=== PATIENT | male | born 1940 | race African-American/Black ===

== ENCOUNTER 2017-03-24 14:59 | Inpatient (IN) | payer MEDICARE, MEDICAID ==
[~2017-03-24] VITALS: Ht 167.6 cm; Wt 73.3 kg
[2017-03-24] VITALS (7 sets, daily range): BP systolic 92–108; BP diastolic 66–76
[~2017-03-24 14:59] MED LIST: ATRIPLA1 TAB ORAL; CEFTIN500 MG ORAL; OXYCODONE HCL40 MG PO; PHENERGAN/CODE120 ML PO; SPIRIVA18 MCG INH; SYMBICORT2 PUFF1 *; seroquel
--- NOTE | 2017-03-24 15:04 | Emergency Room Report ---
History of Present Illness General Chief Complaint: Multiple Trauma/Fall Source: Patient Present Illness HPI Patient is a 77-year-old male who presented after having a fall at his physician 's office. Patient reportedly tripped and fell. He struck his head. Patient had recent alcohol use. Patient was noted to have a injury to his occipital scalp. History is limited by patient's mental status. Allergies: Coded Allergies: PENICILLIN G (Verified Allergy, Unknown, 03/24/17) PENICILLINS (Unverified Allergy, Unknown, 03/24/17) Patient History Past Medical History: CHF, HIV Reviewed Nursing Documentation: PMH: Agreed, PSxH: Agreed Nursing Documentation-PMH Hx Hypertension: Yes Hx Asthma: Yes Hx COPD: Yes Hx Cancer: No History Of Psychiatric Problem: Yes - depression Hx Neurological Problems: No Review of Systems All Other Systems: limited - by mental status Physical Exam Vital Signs Date Time Temp Pulse Resp B/P Pulse Ox O2 Delivery O2 Flow Rate FiO2 03/24/17 14:49 98.4 98 18 83/56 90 Room Air Sp02 EP Interpretation: reviewed, normal General Appearance: normal inspection, alert, thin, Chronically Ill Head: atraumatic ENT: normal ENT inspection, hearing grossly normal, normal voice Neck: normal inspection, full range of motion, supple, no bony tend Respiratory: normal inspection, lungs clear, normal breath sounds, no respiratory distress, no retraction, no wheezing Cardiovascular #1: regular rate, rhythm, no edema Gastrointestinal: normal inspection, normal bowel sounds, non tender, soft, no guarding, no hernia Genitourinary: no CVA tenderness Musculoskeletal: normal inspection, back normal, normal range of motion Neurologic: normal inspection, alert, responsive, [employer] III-XII nml as tested, speech normal Psychiatric: normal inspection, judgement/insight normal, mood/affect normal Skin: normal inspection, normal color, no rash Medical Decision Making Diagnostic Impression: Primary Impression: COPD (chronic obstructive pulmonary disease) Additional Impressions: Acute renal injury Rhabdomyolysis ER Course Patient presented for altered mental status.Differential diagnosis included but was not limited to ischemic stroke, subarachnoid hemorrhage, hypoglycemia, spinal cord injury, neurodegenerative disorder, urinary tract infection, hypoxemia. Because of complexity of patient's case laboratory testing and imaging studies were ordered. The patient noted be initially hypotensive and was started on IV fluids. Laboratory testing was notable for elevated lactic acid level 7.1.The patient was noted to have elevation of his creatinine compared to baseline Chest x- ray one view interpreted by me showed a patchy lung infiltrates without evident pneumothorax or effusion. Dr. Guthrie was contacted for inpatient management. Labs Test 03/24/17 15:11 03/24/17 16:00 03/24/17 16:20 White Blood Count 7.6 K/UL (4.8-10.8) Red Blood Count 4.40 M/UL (4.70-6.10) Hemoglobin 15.2 G/DL (14.2-18.0) Hematocrit 47.2 % (42.0-52.0) Mean Corpuscular Volume 107 FL (80-99) Mean Corpuscular Hemoglobin 34.5 PG (27.0-31.0) Mean Corpuscular Hemoglobin Concent 32.1 G/DL (32.0-36.0) Red Cell Distribution Width 13.8 % (11.6-14.8) Platelet Count 159 K/UL (150-450) Mean Platelet Volume 6.9 FL (6.5-10.1) Neutrophils (%) (Auto) 73.2 % (45.0-75.0) Lymphocytes (%) (Auto) 12.0 % (20.0-45.0) Monocytes (%) (Auto) 11.5 % (1.0-10.0) Eosinophils (%) (Auto) 0.3 % (0.0-3.0) Basophils (%) (Auto) 3.0 % (0.0-2.0) Sodium Level 139 mEQ/L (135-145) Potassium Level 3.3 mEQ/L (3.4-4.9) Chloride Level 92 mEQ/L (98-107) Carbon Dioxide Level 22 mEQ/L (20-30) Anion Gap 25 (5-15) Blood Urea Nitrogen 23 mg/dL (7-23) Creatinine 2.0 mg/dL (0.7-1.2) Estimat Glomerular Filtration Rate mL/min (>60) Glucose Level 96 mg/dL (74-106) Calcium Level 9.1 mg/dL (8.6-10.2) Total Bilirubin 1.8 mg/dL (0.0-1.2) Direct Bilirubin 0.9 mg/dL (0.1-0.3) Aspartate Amino Transf (AST/SGOT) 248 U/L (5-40) Alanine Aminotransferase (ALT/SGPT) 61 U/L (3-41) Alkaline Phosphatase 85 U/L (40-129) Total Creatine Kinase 7650 U/L (38-174) Creatine Kinase MB 28.2 ng/mL (< 6.7) Creatine Kinase MB Relative Index 0.3 Troponin I < 0.30 ng/mL (<=0.30) Pro-B-Type Natriuretic Peptide 70843 pg/mL (0-450) Total Protein 6.8 g/dL (6.6-8.7) Albumin 3.8 g/dL (3.5-5.2) Globulin 3.0 g/dL Albumin/Globulin Ratio 1.2 (1.0-2.7) Serum Alcohol 29 mg/dL Lactic Acid Level 4.70 mmol/L (0.66-2.22) Urine Color María Urine Appearance Slightly cloudy Urine pH 5 (4.5-8.0) Urine Specific [place] 1.020 (1.005-1.035) Urine Protein 2+ (NEGATIVE) Urine Glucose (UA) Negative (NEGATIVE) Urine Ketones 2+ (NEGATIVE) Urine Occult Blood 4+ (NEGATIVE) Urine Nitrite Negative (NEGATIVE) Urine Bilirubin 2+ (NEGATIVE) Urine Ictotest Positive Urine Urobilinogen 8 MG/DL (0.0-1.0) Urine Leukocyte Esterase 1+ (NEGATIVE) Urine RBC 0-2 /HPF (0 - 0) Urine WBC 0-2 /HPF (0 - 0) Urine Squamous Epithelial Cells Few /LPF (NONE/OCC) Urine Bacteria Moderate /HPF (NONE) Urine Hyaline Casts Tntc /LPF (NONE) EKG Diagnostic Results Rate: normal Rhythm: NSR ST Segments: other - t wave inversion anterior leads. Chest X-Ray Diagnostic Results EP Interpretation: Yes Findings: no consolidation, no effusion, no pneumothorax, no acute cardiopulmonary disease Number of Views: 1 Last Vital Signs Date Time Temp Pulse Resp B/P Pulse Ox O2 Delivery O2 Flow Rate FiO2 03/24/17 14:49 98.4 98 18 83/56 90 Room Air Status: unchanged Disposition: ADMITTED INPATIENT Condition: Critical Rachid Bautista March 24, 2017 15:04
[2017-03-24 15:35] LABS: EOSINOPHILS % (AUTO) 0.3 % (0.0-3.0); MEAN CORPUSCULAR HEMOGLOBIN 34.5 PG (27.0-31.0); MEAN CORPUSCULAR HGB CONC 32.1 G/DL (32.0-36.0); MEAN CORPUSCULAR VOLUME 107 FL (80-99); MEAN PLATELET VOLUME 6.9 FL (6.5-10.1); MONOCYTES % (AUTO) 11.5 % (1.0-10.0); NEUTROPHILS % (AUTO) 73.2 % (45.0-75.0); PLATELET COUNT 159 K/UL (150-450); RED CELL DISTRIBUTION WIDTH 13.8 % (11.6-14.8); WHITE BLOOD COUNT 7.6 K/UL (4.8-10.8)
[2017-03-24 15:40] LABS: ALANINE AMINOTRANSFERASE 61 U/L (3-41); ALBUMIN/GLOBULIN RATIO 1.2 (1.0-2.7); ANION GAP 25 (5-15); ASPARTATE AMINO TRANSFERASE 248 U/L (5-40); CALCIUM 9.1 mg/dL (8.6-10.2); CARBON DIOXIDE 22 mEQ/L (20-30); CHLORIDE 92 mEQ/L (98-107); HEMOLYSIS 15; POTASSIUM 3.3 mEQ/L (3.4-4.9); SODIUM 139 mEQ/L (135-145); TOTAL PROTEIN 6.8 g/dL (6.6-8.7); TROPONIN I < 0.30 ng/mL (<=0.30)
[2017-03-24 15:47] LABS: REFLEX LACTIC ACID YES OR NO YES
[2017-03-24 15:51] LABS: CKMB 28.2 ng/mL (< 6.7)
--- NOTE | 2017-03-24 15:59 | Diagnostic Imaging Report ---
Indication: Neck pain. Technique: Continuous helical imaging of the cervical spine was obtained transaxially from the skull base to the upper thoracic spine. 2-D coronal and sagittal reformatted images were obtained. Total Dose length Product (DLP): [address] Dose Index Volume (CTDIvol): 14 mGy Comparison: None Findings: There is no acute fracture identified. There is three-level interbody fusion at C3-C4 and C5. There are bridging osteophytes anteriorly at C2-3. Narrowed discs noted at C5-6 and C6-7 also with endplate osteophytes. Alignment is normal. Vascular calcifications noted within the extracranial portions of both carotid arteries as visualized. Multilevel central and neural foraminal stenosis demonstrated. Impression: No acute injury identified. Moderate spondylosis. Status post anterior interbody fusion C3-C5. Atherosclerotic vascular disease The CT scanner at [facility] is accredited by the [employer] and the scans are performed using dose optimization techniques as appropriate to a performed exam including Automatic Exposure control.
--- NOTE | 2017-03-24 16:00 | Diagnostic Imaging Report ---
Indication: Headache Technique: Contiguous 5 mm thick transaxial imaging of the head obtained in a Siemens Sensation [address] scanner. Soft tissue and bone windows generated. Total Dose length Product (DLP): [address] Dose Index Volume (CTDIvol): 70.38 mGy Comparison: none Findings: There is mild prominence of the ventricles, basal cisterns, and cerebral sulci consistent with atrophy. Mild, nonspecific, white matter hypoattenuation is noted throughout the brain consistent with chronic small vessel disease. There is no midline shift, edema, acute hemorrhage, mass effect, or abnormal extra-axial fluid collections. Bones and extra osseous soft tissues are unremarkable. Impression: No acute intracranial bleed, mass effect or edema. Mild atrophy of the brain. Nonspecific white matter hypoattenuation probably due to chronic small vessel disease. The CT scanner at [facility] is accredited by the [employer] and the scans are performed using dose optimization techniques as appropriate to a performed exam including Automatic Exposure control.
[2017-03-24 16:01] LABS: BILIRUBIN,DIRECT 0.9 mg/dL (0.1-0.3)
[2017-03-24 16:50] LABS: APPEARANCE,URINE SLIGHTLY CLOUDY; KETONES,URINE 2+ (NEGATIVE); LEUKOCYTE ESTERASE ,URINE 1+ (NEGATIVE); NITRITE,URINE NEGATIVE (NEGATIVE); PH,URINE 5 (4.5-8.0); PROTEIN,URINE 2+ (NEGATIVE); UROBILINOGEN,URINE 8 MG/DL (0.0-1.0)
[2017-03-24 16:52] LABS: ICTOTEST POSITIVE
[2017-03-24 16:57] LABS: HYALINE CASTS, URINE TNTC /LPF; RBC,URINE 0-2 /HPF (0 - 0); WBC,URINE 0-2 /HPF (0 - 0)
[2017-03-24 16:58] LABS: BACTERIA,URINE MODERATE /HPF; SQUAMOUS EPITHELIAL CELL,UR FEW /LPF (NONE/OCC)
[2017-03-24] MEDS ORDERED: SEROQUEL200 MG ORAL (18:00)
[2017-03-24] MEDS ORDERED: SEROSTIM6 M1 SQ (18:00)
[2017-03-24] MEDS ORDERED: MORPHINE IR15 MG ORAL (18:06)
[2017-03-24] MEDS ORDERED: FUROSEMIDE20 M1 ORAL (18:06)
[2017-03-24] MEDS ORDERED: DALIRESP500 MCG PO (18:06)
[2017-03-24] MEDS ORDERED: KADIAN60 MG PO (18:06)
[2017-03-24] MEDS ORDERED: TRAZODONE HCL50 MG ORAL (18:12)
[2017-03-24] MEDS ORDERED: PROMETHAZI6.25 MG/1 ORAL (18:12)
[2017-03-24] MEDS ORDERED: ECONAZOLE NITRA30 GM TP (18:12)
[2017-03-24] MEDS ORDERED: GENVOYA TABLET1 EACH PO (18:12)
[2017-03-24] MEDS ORDERED: LORazepam Inj 2mg/ml 1ml IV PRN (18:15)
[2017-03-24] MEDS ORDERED: DuoNeb 0.5-3(2.5)mg/3ml neb HHN PRN (18:15)
[2017-03-24] MEDS ORDERED: Miralax 17gm pkt ORAL PRN (18:15)
[2017-03-24] MEDS ORDERED: Mylanta II UD 30ml ORAL PRN (18:15)
[2017-03-24] MEDS ORDERED: Morphine Sulfate 2mg/ml Inj IVP PRN (18:15)
[2017-03-24] MEDS ORDERED: Nitroglycerin Subl 0.4mg tab (Bottle Of 25) SL PRN (18:15)
[2017-03-24] MEDS ORDERED: Promethazine/Codeine 5ml UD ORAL PRN (18:30)
[2017-03-24] MEDS: DuoNeb 0.5-3(2.5)mg/3ml neb HHN SCH (21:23)
[2017-03-24] MEDS: Heparin 5000 units/ml inj SUBQ SCH (21:25)
[2017-03-25] VITALS: BP 108/74
[2017-03-25] MEDS: DuoNeb 0.5-3(2.5)mg/3ml neb HHN SCH ×4 (01:06→19:20)
[2017-03-25 04:00] VITALS: BP 101/62
[2017-03-25 05:55] LABS: ALANINE AMINOTRANSFERASE 52 U/L (3-41); ALBUMIN/GLOBULIN RATIO 1.1 (1.0-2.7); ANION GAP 16 (5-15); ASPARTATE AMINO TRANSFERASE 183 U/L (5-40); CARBON DIOXIDE 27 mEQ/L (20-30); CHLORIDE 97 mEQ/L (98-107); CREATININE 1.2 mg/dL (0.7-1.2); HEMOLYSIS 4; MAGNESIUM 1.8 mg/dL (1.7-2.5); PHOSPHORUS 3.2 mg/dL (2.5-4.8); POTASSIUM 3.5 mEQ/L (3.4-4.9); SODIUM 140 mEQ/L (135-145); TOTAL PROTEIN 6.3 g/dL (6.6-8.7); URIC ACID 10.7 mg/dL (3.0-7.5)
[2017-03-25 05:59] LABS: THYROID STIMULATING HORMONE 0.549 uIU/mL (0.300-4.500)
[2017-03-25 06:29] LABS: BILIRUBIN,DIRECT 0.6 mg/dL (0.1-0.3)
[2017-03-25 08:00] VITALS: BP 110/75
[2017-03-25] MEDS: Heparin 5000 units/ml inj SUBQ SCH ×2 (08:35→21:03)
[2017-03-25] MEDS ORDERED: QUEtiapine 200mg tab ORAL SCH (09:00)
[2017-03-25 10:25] LABS: APPEARANCE,URINE CLEAR; KETONES,URINE 3+ (NEGATIVE); LEUKOCYTE ESTERASE ,URINE 1+ (NEGATIVE); NITRITE,URINE NEGATIVE (NEGATIVE); PH,URINE 5 (4.5-8.0); PROTEIN,URINE 1+ (NEGATIVE); UROBILINOGEN,URINE 8 MG/DL (0.0-1.0)
[2017-03-25 10:41] LABS: BACTERIA,URINE FEW /HPF; RBC,URINE 0-2 /HPF (0 - 0); SQUAMOUS EPITHELIAL CELL,UR OCCASIONAL /LPF (NONE/OCC); WBC,URINE 0-2 /HPF (0 - 0)
[2017-03-25 10:45] LABS: ICTOTEST POSITIVE
[2017-03-25 11:49] VITALS: BP 105/60
--- NOTE | 2017-03-25 13:12 | Consultation ---
History of Present Illness General Date patient seen: March 25, 2017 Chief Complaint: Multiple Trauma/Fall Present Illness HPI 77-year-old male with hx of HIV, who presented after having a fall at his physician's office. Patient reportedly tripped and fell. He struck his head. Patient had recent alcohol use. Patient was noted to have a injury to his occipital scalp. He had high blood etoh level. admitted to [facility] for syncopal episode. Allergies: Coded Allergies: PENICILLIN G (Verified Allergy, Unknown, 03/24/17) PENICILLINS (Unverified Allergy, Unknown, 03/24/17) Medication History Scheduled Budesonide/Formoterol Fumarate (Symbicort 160-4.5 Mcg Inhaler), 1 PUFFS * BID, ( Reported) Econazole Nitrate (Econazole Nitrate), 30 GM TP BID, (Reported) Elviteg/Kamille/Emtric/Tenofo Ala (Genvoya Tablet), 1 EACH PO DAILY, (Reported) Furosemide* (Lasix*), 20 MG ORAL DAILY, (Reported) Morphine HCl (Morphine Sulfate ER), 15 MG ORAL DAILY, (Reported) Morphine Sulfate (Hannah), 60 MG PO TID, (Reported) Promethazine Hcl (Promethazine Hcl*), 5 ML ORAL BEDTIME, (Reported) Quetiapine Fumarate* (Seroquel*), 200 MG ORAL DAILY, (Reported) Roflumilast (Daliresp), 500 MCG PO DAILY, (Reported) Somatropin (Serostim), 6 MG SQ BEDTIME, (Reported) Trazodone Hcl* (Desyrel*), 50 MG ORAL BEDTIME, (Reported) Discontinued Medications Cefuroxime Axetil* (Ceftin*), 500 MG ORAL BID, (Reported) Discontinued Reason: Therapy completed Efavirenz/Emtricitab/Tenofovir (Atripla Tablet), 1 TAB ORAL HS, (Reported) Discontinued Reason: Pt stopped taking med Tiotropium [place]* (Spiriva*), 1 PUFF INH DAILY, (Reported) Discontinued Reason: Pt stopped taking med [seroquel], (Reported) Discontinued Reason: Prescription changed Patient History Healthcare decision maker Resuscitation status Full Code Advanced Directive on File No Past Medical/Surgical History Past Medical/Surgical History: (1) HIV disease (2) COPD (chronic obstructive pulmonary disease) (3) Hypokalemia Review of Systems All Other Systems: negative except mentioned in HPI Physical Exam General Appearance: cachetic Lines, tubes and drains: peripheral HEENT: normocephalic, anicteric Neck: non-tender, normal alignment Respiratory/Chest: chest wall non-tender, lungs clear Cardiovascular/Chest: normal peripheral pulses, normal rate Abdomen: normal bowel sounds, non tender Genitourinary/Rectal: normal genital exam Extremities: normal range of motion Last 24 Hour Vital Signs Date Time Temp Pulse Resp B/P Pulse Ox O2 Delivery O2 Flow Rate FiO2 03/25/17 11:49 97.5 95 21 105/60 92 Nasal Cannula 2.0 03/25/17 08:00 97.9 90 20 110/75 92 Nasal Cannula 4.0 03/25/17 08:00 84 03/25/17 07:23 89 16 98 Nasal Cannula 2.0 28 03/25/17 07:17 Nasal Cannula 2.0 03/25/17 07:17 84 16 98 Nasal Cannula 2.0 28 03/25/17 07:17 98 Nasal Cannula 2.0 03/25/17 04:00 82 03/25/17 04:00 97.2 88 20 101/62 98 Nasal Cannula 4.0 03/25/17 01:16 92 18 98 Nasal Cannula 2.0 28 03/25/17 01:06 93 20 98 Nasal Cannula 2.0 28 03/25/17 00:00 97.0 94 20 108/74 98 Nasal Cannula 4.0 03/25/17 00:00 87 03/24/17 21:28 Nasal Cannula 03/24/17 21:28 Nasal Cannula 03/24/17 21:27 97 Nasal Cannula 4.0 03/24/17 21:27 Nasal Cannula 4.0 03/24/17 20:30 86 03/24/17 20:30 97.9 99 20 106/72 97 Nasal Cannula 4.0 03/24/17 20:20 90 23 102/71 97 Nasal Cannula 4.0 03/24/17 19:20 97.2 90 23 102/71 97 Nasal Cannula 4.0 03/24/17 18:36 98.5 90 20 107/72 94 Nasal Cannula 4.0 03/24/17 17:30 98.2 86 17 102/76 95 Simple Mask 6.0 03/24/17 16:38 98.7 99 19 108/76 95 Simple Mask 6.0 03/24/17 16:38 99 19 Simple Mask 6.0 03/24/17 15:30 87 16 103/73 93 Simple Mask 6.0 03/24/17 15:00 93 12 Nasal Cannula 4.0 03/24/17 15:00 98.2 93 12 92/66 87 Nasal Cannula 4.0 03/24/17 14:49 98.4 98 18 83/56 90 Room Air Intake and Output 03/24/17 03/25/17 19:00 07:00 Intake Total 1000 ml 240 ml Output Total 250 ml Balance 1000 ml -10 ml Intake Oral 240 ml IV Total 1000 ml Output Urine Total 250 ml # Voids 1 # Bowel Movements 4 Laboratory Tests Test 03/24/17 15:11 03/24/17 16:00 03/24/17 16:20 03/25/17 03:40 White Blood Count 7.6 K/UL (4.8-10.8) Red Blood Count 4.40 M/UL (4.70-6.10) L Hemoglobin 15.2 G/DL (14.2-18.0) Hematocrit 47.2 % (42.0-52.0) Mean Corpuscular Volume 107 FL (80-99) H Mean Corpuscular Hemoglobin 34.5 PG (27.0-31.0) H Mean Corpuscular Hemoglobin Concent 32.1 G/DL (32.0-36.0) Red Cell Distribution Width 13.8 % (11.6-14.8) Platelet Count 159 K/UL (150-450) Mean Platelet Volume 6.9 FL (6.5-10.1) Neutrophils (%) (Auto) 73.2 % (45.0-75.0) Lymphocytes (%) (Auto) 12.0 % (20.0-45.0) L Monocytes (%) (Auto) 11.5 % (1.0-10.0) H Eosinophils (%) (Auto) 0.3 % (0.0-3.0) Basophils (%) (Auto) 3.0 % (0.0-2.0) H Sodium Level 139 mEQ/L (135-145) 140 mEQ/L (135-145) Potassium Level 3.3 mEQ/L (3.4-4.9) L 3.5 mEQ/L (3.4-4.9) Chloride Level 92 mEQ/L (98-107) L 97 mEQ/L (98-107) L Carbon Dioxide Level 22 mEQ/L (20-30) 27 mEQ/L (20-30) Anion Gap 25 (5-15) H 16 (5-15) H Blood Urea Nitrogen 23 mg/dL (7-23) 21 mg/dL (7-23) Creatinine 2.0 mg/dL (0.7-1.2) H 1.2 mg/dL (0.7-1.2) Estimat Glomerular Filtration Rate mL/min (>60) mL/min (>60) Glucose Level 96 mg/dL (74-106) 93 mg/dL (74-106) Lactic Acid Level 7.40 mmol/L (0.66-2.22) H 4.70 mmol/L (0.66-2.22) H Calcium Level 9.1 mg/dL (8.6-10.2) 9.0 mg/dL (8.6-10.2) Total Bilirubin 1.8 mg/dL (0.0-1.2) H 1.5 mg/dL (0.0-1.2) H Direct Bilirubin 0.9 mg/dL (0.1-0.3) H 0.6 mg/dL (0.1-0.3) H Aspartate Amino Transf (AST/SGOT) 248 U/L (5-40) H 183 U/L (5-40) H Alanine Aminotransferase (ALT/SGPT) 61 U/L (3-41) H 52 U/L (3-41) H Alkaline Phosphatase 85 U/L (40-129) 74 U/L (40-129) Total Creatine Kinase 7650 U/L (38-174) H 5566 U/L (38-174) H Creatine Kinase MB 28.2 ng/mL (< 6.7) H Creatine Kinase MB Relative Index 0.3 Troponin I < 0.30 ng/mL (<=0.30) Pro-B-Type Natriuretic Peptide 21776 pg/mL (0-450) H Total Protein 6.8 g/dL (6.6-8.7) 6.3 g/dL (6.6-8.7) L Albumin 3.8 g/dL (3.5-5.2) 3.4 g/dL (3.5-5.2) L Globulin 3.0 g/dL 2.9 g/dL Albumin/Globulin Ratio 1.2 (1.0-2.7) 1.1 (1.0-2.7) Serum Alcohol 29 mg/dL Urine Color María Urine Appearance Slightly cloudy Urine pH 5 (4.5-8.0) Urine Specific [place] 1.020 (1.005-1.035) Urine Protein 2+ (NEGATIVE) H Urine Glucose (UA) Negative (NEGATIVE) Urine Ketones 2+ (NEGATIVE) H Urine Occult Blood 4+ (NEGATIVE) H Urine Nitrite Negative (NEGATIVE) Urine Bilirubin 2+ (NEGATIVE) H Urine Ictotest Positive Urine Urobilinogen 8 MG/DL (0.0-1.0) H Urine Leukocyte Esterase 1+ (NEGATIVE) H Urine RBC 0-2 /HPF (0 - 0) H Urine WBC 0-2 /HPF (0 - 0) Urine Squamous Epithelial Cells Few /LPF (NONE/OCC) Urine Bacteria Moderate /HPF (NONE) H Urine Hyaline Casts Tntc /LPF (NONE) H Plasma/Serum Osmolality Pending Uric Acid 10.7 mg/dL (3.0-7.5) H Phosphorus Level 3.2 mg/dL (2.5-4.8) Magnesium Level 1.8 mg/dL (1.7-2.5) Thyroid Stimulating Hormone (TSH) 0.549 uIU/mL (0.300-4.500) Free Thyroxine 1.23 ng/dL (0.86-1.85) Free Triiodothyronine Pending Cortisol Pending Test 03/25/17 05:00 Urine Color Brown Urine Appearance Clear Urine pH 5 (4.5-8.0) Urine Specific [place] 1.020 (1.005-1.035) Urine Protein 1+ (NEGATIVE) H Urine Glucose (UA) Negative (NEGATIVE) Urine Ketones 3+ (NEGATIVE) H Urine Occult Blood 1+ (NEGATIVE) H Urine Nitrite Negative (NEGATIVE) Urine Bilirubin 1+ (NEGATIVE) H Urine Ictotest Positive Urine Urobilinogen 8 MG/DL (0.0-1.0) H Urine Leukocyte Esterase 1+ (NEGATIVE) H Urine RBC 0-2 /HPF (0 - 0) H Urine WBC 0-2 /HPF (0 - 0) Urine Squamous Epithelial Cells Occasional /LPF Urine Bacteria Few /HPF (NONE) Urine Eosinophils None seen Urine Osmolality Pending Urine Random Sodium 28 mmol/L Urine Random Chloride 32 mmol/L Urine Potassium Timed 29 mmol/L Microbiology Date/Time Source Procedure Growth Status 03/24/17 16:20 Urine,Clean Catch Urine Culture - Preliminary Resulted Height (Feet): 5 Height (Inches): 6.00 Weight (Pounds): 142 Medications Current Medications Medications (Trade) Dose Ordered Sig/Raoul Route PRN Reason Start Time Stop Time Status Last Admin Dose Admin Acetaminophen (Tylenol) 650 mg Q4H PRN ORAL fever 03/24/17 18:15 04/23/17 18:14 Al Hydroxide/Mg Hydroxide (Mylanta II) 30 ml Q6H PRN ORAL dyspepsia 03/24/17 18:15 04/23/17 18:14 Albuterol/ Ipratropium (DuoNeb 0.5-3(2.5)mg/3ml) 3 ml Q4H PRN HHN Shortness of Breath 03/24/17 18:15 03/29/17 18:14 Albuterol/ Ipratropium (DuoNeb 0.5-3(2.5)mg/3ml) 3 ml Q6HRT HHN 03/24/17 19:00 03/29/17 18:59 03/25/17 07:17 Chlordiazepoxide (Librium) 25 mg Q6H PRN ORAL Agitation 03/25/17 13:00 04/01/17 12:59 UNV Clonidine HCl (Catapres) 0.1 mg Q4H PRN ORAL SBP > 160 03/24/17 18:15 04/23/17 18:14 Dextrose (Dextrose 50%) STAT PRN IV Hypoglycemia 03/24/17 18:15 04/23/17 18:14 Heparin Sodium (Porcine) (Heparin 5000 units/ml) 5,000 units EVERY 12 HOURS SUBQ 03/24/17 21:00 04/23/17 20:59 03/25/17 08:35 Lorazepam (Ativan 2mg/ml 1ml) 0.5 mg Q4H PRN IV For Anxiety 03/24/17 18:15 03/31/17 18:14 Morphine Sulfate (Morphine Sulfate) 1 mg Q4H PRN IVP For Pain 7-10 03/24/17 18:15 03/31/17 18:14 03/25/17 08:51 Nitroglycerin (Ntg) 0.4 mg Q5M X 3 DOSES PRN SL Prn Chest Pain 03/24/17 18:15 04/23/17 18:14 Ondansetron HCl (Zofran) 4 mg Q6H PRN IVP Nausea & Vomiting 03/24/17 18:15 04/23/17 18:14 Polyethylene Glycol (Miralax) 17 gm HSPRN PRN ORAL Constipation 03/24/17 18:15 04/23/17 18:14 Promethazine HCl/ Codeine 5 ml 5 ml Q4H PRN ORAL For Cough 03/24/17 18:30 04/23/17 18:29 Quetiapine Fumarate (SEROquel) 200 mg DAILY ORAL 03/25/17 09:00 04/24/17 08:59 03/25/17 08:34 Temazepam (Restoril) 15 mg HSPRN PRN ORAL Insomnia 03/24/17 18:15 03/31/17 18:14 03/24/17 23:25 Thiamine HCl/ Folic Acid/ Magnesium Sulfate/ Multivitamins/ Sodium Chloride (Vitamin B1/ Folvite/Magnesium Sulfate/M.v.i.-12/ NS w/KCl 20mEq) 1,015.2 ml @ 125 mls/ hr Q24H IV 03/25/17 13:00 04/24/17 12:59 UNV Assessment/Plan Problem List: (1) Acute encephalopathy ICD Codes: G93.40 - Encephalopathy, unspecified SNOMED: 3232372 (2) ATN (acute tubular necrosis) ICD Codes: N17.0 - Acute kidney failure with tubular necrosis SNOMED: 98245711 (3) COPD (chronic obstructive pulmonary disease) ICD Codes: J44.9 - COPD (chronic obstructive pulmonary disease) SNOMED: 56810175 (4) Acute renal injury ICD Codes: N17.9 - Acute kidney failure, unspecified SNOMED: 30028843 (5) Hypokalemia ICD Codes: E87.6 - Hypokalemia SNOMED: 59938836 (6) HIV disease ICD Codes: B20 - Human immunodeficiency virus [HIV] disease SNOMED: 99745096 Assessment/Plan respiratory treatment sputum induction librium banan bag echo doppler of carotid artery. renal evaluation renew morphine YAJAIRA PRADO March 25, 2017 13:12
[2017-03-25] MEDS ORDERED: Promethazine/Codeine 5ml UD ORAL PRN ×2 (13:15→21:15)
[2017-03-25] MEDS ORDERED: chlordiazePOXIDE 25mg Cap ORAL PRN ×2 (13:30→19:30)
--- NOTE | 2017-03-25 13:53 | Cardiology Report ---
APPROVED REPORT EXAM: Two-dimensional and M-mode echocardiogram with Doppler and color Doppler. INDICATION LV function M-Mode DIMENSIONS IVSd0.9 (0.7-1.1cm)Left Atrium (MM)3.1 (1.6-4.0cm) LVDd5.1 (3.5-5.6cm)Aortic Root3.9 (2.0-3.7cm) PWd0.8 (0.7-1.1cm)Aortic Cusp Exc.2.2 (1.5-2.0cm) LVDs2.8 (2.5-4.0cm) PWs1.6 cm M-mode measurements of left ventricle not obtainable due to cardiac position (angle) Normal left ventricular chamber size, systolic function and wall motion. Left ventricular ejection fraction estimated to be 60-65 %. No evidence of left ventricular hypertrophy. No evidence of pericardial effusion. Left and right atrial sizes at upper limits of normal. Right ventricular chamber size is within normal limits. Mild focal aortic valve sclerosis with adequate cusp excursion. Mildly thickened mitral valve leaflets with normal excursion. Mitral annulus and aortic root calcification. Pulmonic valve not well visualized. Normal tricuspid valve structure. IVC at normal size with physiologic collapse. A color flow and spectral Doppler study was performed and revealed: Mild aortic regurgitation. Trace mitral regurgitation. Mitral diastolic velocities suggest reduced left ventricular relaxation c/w mild LV diastolic dysfunction (Grade I). Mild tricuspid regurgitation. Tricuspid systolic velocities suggests peak right ventricular systolic pressure of 38 mmHg, consistent with mild pulmonary hypertension. Mild pulmonic regurgitation present.
[2017-03-25] MEDS ORDERED: Folic Acid 1 MG, Magnesium Sulfate 2,000 MG, Multivitamin - 12 Injection 10 ML in NS w/... IV SCH (15:00)
[2017-03-25] MEDS ORDERED: Thiamine 100 MG ivpb IVPB SCH ×2 (15:00)
--- NOTE | 2017-03-25 15:05 | Infectious Diseases Prog Note ---
Assessment/Plan Assessment/Plan Full consult Dictated: A) 1) possible uti 2) uri/bronchitis, ? 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 Guthrie 7) thank you Subjective Allergies: Coded Allergies: PENICILLIN G (Verified Allergy, Unknown, 03/24/17) PENICILLINS (Unverified Allergy, Unknown, 03/24/17) Objective Vital Signs Last 24 Hour Vital Signs Date Time Temp Pulse Resp B/P Pulse Ox O2 Delivery O2 Flow Rate FiO2 03/25/17 13:20 87 18 98 Nasal Cannula 2.0 28 03/25/17 13:20 Nasal Cannula 2.0 28 03/25/17 12:00 108 03/25/17 11:49 97.5 95 21 105/60 92 Nasal Cannula 2.0 03/25/17 08:00 97.9 90 20 110/75 92 Nasal Cannula 4.0 03/25/17 08:00 84 03/25/17 07:23 89 16 98 Nasal Cannula 2.0 28 03/25/17 07:17 Nasal Cannula 2.0 03/25/17 07:17 84 16 98 Nasal Cannula 2.0 28 03/25/17 07:17 98 Nasal Cannula 2.0 03/25/17 04:00 82 03/25/17 04:00 97.2 88 20 101/62 98 Nasal Cannula 4.0 03/25/17 01:16 92 18 98 Nasal Cannula 2.0 28 03/25/17 01:06 93 20 98 Nasal Cannula 2.0 28 03/25/17 00:00 97.0 94 20 108/74 98 Nasal Cannula 4.0 03/25/17 00:00 87 03/24/17 21:28 Nasal Cannula 03/24/17 21:28 Nasal Cannula 03/24/17 21:27 97 Nasal Cannula 4.0 03/24/17 21:27 Nasal Cannula 4.0 03/24/17 20:30 86 03/24/17 20:30 97.9 99 20 106/72 97 Nasal Cannula 4.0 03/24/17 20:20 90 23 102/71 97 Nasal Cannula 4.0 03/24/17 19:20 97.2 90 23 102/71 97 Nasal Cannula 4.0 03/24/17 18:36 98.5 90 20 107/72 94 Nasal Cannula 4.0 03/24/17 17:30 98.2 86 17 102/76 95 Simple Mask 6.0 03/24/17 16:38 98.7 99 19 108/76 95 Simple Mask 6.0 03/24/17 16:38 99 19 Simple Mask 6.0 03/24/17 15:30 87 16 103/73 93 Simple Mask 6.0 Height (Feet): 5 Height (Inches): 6.00 Weight (Pounds): 142 Microbiology Date/Time Source Procedure Growth Status 03/24/17 16:20 Urine,Clean Catch Urine Culture - Preliminary Resulted Laboratory Tests Test 03/24/17 15:11 03/24/17 16:00 03/24/17 16:20 03/25/17 03:40 White Blood Count 7.6 K/UL (4.8-10.8) Red Blood Count 4.40 M/UL (4.70-6.10) L Hemoglobin 15.2 G/DL (14.2-18.0) Hematocrit 47.2 % (42.0-52.0) Mean Corpuscular Volume 107 FL (80-99) H Mean Corpuscular Hemoglobin 34.5 PG (27.0-31.0) H Mean Corpuscular Hemoglobin Concent 32.1 G/DL (32.0-36.0) Red Cell Distribution Width 13.8 % (11.6-14.8) Platelet Count 159 K/UL (150-450) Mean Platelet Volume 6.9 FL (6.5-10.1) Neutrophils (%) (Auto) 73.2 % (45.0-75.0) Lymphocytes (%) (Auto) 12.0 % (20.0-45.0) L Monocytes (%) (Auto) 11.5 % (1.0-10.0) H Eosinophils (%) (Auto) 0.3 % (0.0-3.0) Basophils (%) (Auto) 3.0 % (0.0-2.0) H Sodium Level 139 mEQ/L (135-145) 140 mEQ/L (135-145) Potassium Level 3.3 mEQ/L (3.4-4.9) L 3.5 mEQ/L (3.4-4.9) Chloride Level 92 mEQ/L (98-107) L 97 mEQ/L (98-107) L Carbon Dioxide Level 22 mEQ/L (20-30) 27 mEQ/L (20-30) Anion Gap 25 (5-15) H 16 (5-15) H Blood Urea Nitrogen 23 mg/dL (7-23) 21 mg/dL (7-23) Creatinine 2.0 mg/dL (0.7-1.2) H 1.2 mg/dL (0.7-1.2) Estimat Glomerular Filtration Rate mL/min (>60) mL/min (>60) Glucose Level 96 mg/dL (74-106) 93 mg/dL (74-106) Lactic Acid Level 7.40 mmol/L (0.66-2.22) H 4.70 mmol/L (0.66-2.22) H Calcium Level 9.1 mg/dL (8.6-10.2) 9.0 mg/dL (8.6-10.2) Total Bilirubin 1.8 mg/dL (0.0-1.2) H 1.5 mg/dL (0.0-1.2) H Direct Bilirubin 0.9 mg/dL (0.1-0.3) H 0.6 mg/dL (0.1-0.3) H Aspartate Amino Transf (AST/SGOT) 248 U/L (5-40) H 183 U/L (5-40) H Alanine Aminotransferase (ALT/SGPT) 61 U/L (3-41) H 52 U/L (3-41) H Alkaline Phosphatase 85 U/L (40-129) 74 U/L (40-129) Total Creatine Kinase 7650 U/L (38-174) H 5566 U/L (38-174) H Creatine Kinase MB 28.2 ng/mL (< 6.7) H Creatine Kinase MB Relative Index 0.3 Troponin I < 0.30 ng/mL (<=0.30) Pro-B-Type Natriuretic Peptide 55286 pg/mL (0-450) H Total Protein 6.8 g/dL (6.6-8.7) 6.3 g/dL (6.6-8.7) L Albumin 3.8 g/dL (3.5-5.2) 3.4 g/dL (3.5-5.2) L Globulin 3.0 g/dL 2.9 g/dL Albumin/Globulin Ratio 1.2 (1.0-2.7) 1.1 (1.0-2.7) Serum Alcohol 29 mg/dL Urine Color María Urine Appearance Slightly cloudy Urine pH 5 (4.5-8.0) Urine Specific [place] 1.020 (1.005-1.035) Urine Protein 2+ (NEGATIVE) H Urine Glucose (UA) Negative (NEGATIVE) Urine Ketones 2+ (NEGATIVE) H Urine Occult Blood 4+ (NEGATIVE) H Urine Nitrite Negative (NEGATIVE) Urine Bilirubin 2+ (NEGATIVE) H Urine Ictotest Positive Urine Urobilinogen 8 MG/DL (0.0-1.0) H Urine Leukocyte Esterase 1+ (NEGATIVE) H Urine RBC 0-2 /HPF (0 - 0) H Urine WBC 0-2 /HPF (0 - 0) Urine Squamous Epithelial Cells Few /LPF (NONE/OCC) Urine Bacteria Moderate /HPF (NONE) H Urine Hyaline Casts Tntc /LPF (NONE) H Plasma/Serum Osmolality Pending Uric Acid 10.7 mg/dL (3.0-7.5) H Phosphorus Level 3.2 mg/dL (2.5-4.8) Magnesium Level 1.8 mg/dL (1.7-2.5) Thyroid Stimulating Hormone (TSH) 0.549 uIU/mL (0.300-4.500) Free Thyroxine 1.23 ng/dL (0.86-1.85) Free Triiodothyronine Pending Cortisol Pending Test 03/25/17 05:00 Urine Color Brown Urine Appearance Clear Urine pH 5 (4.5-8.0) Urine Specific [place] 1.020 (1.005-1.035) Urine Protein 1+ (NEGATIVE) H Urine Glucose (UA) Negative (NEGATIVE) Urine Ketones 3+ (NEGATIVE) H Urine Occult Blood 1+ (NEGATIVE) H Urine Nitrite Negative (NEGATIVE) Urine Bilirubin 1+ (NEGATIVE) H Urine Ictotest Positive Urine Urobilinogen 8 MG/DL (0.0-1.0) H Urine Leukocyte Esterase 1+ (NEGATIVE) H Urine RBC 0-2 /HPF (0 - 0) H Urine WBC 0-2 /HPF (0 - 0) Urine Squamous Epithelial Cells Occasional /LPF Urine Bacteria Few /HPF (NONE) Urine Eosinophils None seen Urine Osmolality Pending Urine Random Sodium 28 mmol/L Urine Random Chloride 32 mmol/L Urine Potassium Timed 29 mmol/L Current Medications Medications (Trade) Dose Ordered Sig/Raoul Route PRN Reason Start Time Stop Time Status Last Admin Dose Admin Acetaminophen (Tylenol) 650 mg Q4H PRN ORAL fever 03/24/17 18:15 04/23/17 18:14 Al Hydroxide/Mg Hydroxide (Mylanta II) 30 ml Q6H PRN ORAL dyspepsia 03/24/17 18:15 04/23/17 18:14 Albuterol/ Ipratropium (DuoNeb 0.5-3(2.5)mg/3ml) 3 ml Q4H PRN HHN Shortness of Breath 03/24/17 18:15 03/29/17 18:14 Albuterol/ Ipratropium 3 ml 3 ml Q6HRT HHN 03/24/17 19:00 03/29/17 18:59 03/25/17 07:17 Chlordiazepoxide (Librium) 25 mg Q6H PRN ORAL Agitation 03/25/17 13:30 04/01/17 13:29 Clonidine HCl (Catapres) 0.1 mg Q4H PRN ORAL SBP > 160 03/24/17 18:15 04/23/17 18:14 Dextrose (Dextrose 50%) STAT PRN IV Hypoglycemia 03/24/17 18:15 04/23/17 18:14 Folic Acid/ Magnesium Sulfate/ Multivitamins/ Sodium Chloride (Folvite/ Magnesium Sulfate/ M.v.i.-12/NS w/ KCl 20mEq) 1,014.2 ml @ 125 mls/ hr Q24H IV 03/25/17 15:00 04/24/17 14:59 Heparin Sodium (Porcine) (Heparin 5000 units/ml) 5,000 units EVERY 12 HOURS SUBQ 03/24/17 21:00 04/23/17 20:59 03/25/17 08:35 Lorazepam (Ativan 2mg/ml 1ml) 0.5 mg Q4H PRN IV For Anxiety 03/24/17 18:15 03/31/17 18:14 Morphine Sulfate (MS Contin) 15 mg DAILY ORAL 03/26/17 09:00 04/02/17 08:59 Morphine Sulfate (Morphine Sulfate) 1 mg Q4H PRN IVP For Pain 7-03/24/17 18:15 03/31/17 18:14 03/25/17 08:51 Nitroglycerin (Ntg) 0.4 mg Q5M X 3 DOSES PRN SL Prn Chest Pain 03/24/17 18:15 04/23/17 18:14 Ondansetron HCl (Zofran) 4 mg Q6H PRN IVP Nausea & Vomiting 03/24/17 18:15 04/23/17 18:14 Polyethylene Glycol (Miralax) 17 gm HSPRN PRN ORAL Constipation 03/24/17 18:15 04/23/17 18:14 Promethazine HCl/ Codeine (Phenergan with Codeine) 5 ml Q4H PRN ORAL For Cough 03/25/17 13:15 04/24/17 13:14 Quetiapine Fumarate (SEROquel) 200 mg DAILY ORAL 03/25/17 09:00 04/24/17 08:59 03/25/17 08:34 Temazepam (Restoril) 15 mg HSPRN PRN ORAL Insomnia 03/24/17 18:15 03/31/17 18:14 03/24/17 23:25 Thiamine HCl/ Dextrose (Vitamin B1/D5W) 56 ml @ 112 mls/hr Q24H IVPB 03/25/17 15:00 04/24/17 14:59 Trazodone HCl 50 mg 50 mg BEDTIME ORAL 03/25/17 21:00 04/24/17 20:59 CARISSA HAYWOOD March 25, 2017 15:05
[2017-03-25 16:28] VITALS: BP 114/76
[2017-03-25] MEDS ORDERED: metroNIDAZOLE 500mg 100 ML IVPB SCH (16:30)
--- NOTE | 2017-03-25 16:54 | Cardiology Progress Note ---
Assessment/Plan Assessment/Plan The patient is seen and examined, full consult note is dictated. Objective Last 24 Hour Vital Signs Date Time Temp Pulse Resp B/P Pulse Ox O2 Delivery O2 Flow Rate FiO2 03/25/17 16:28 97.9 85 20 114/76 93 Nasal Cannula 2.0 03/25/17 13:20 87 18 98 Nasal Cannula 2.0 28 03/25/17 13:20 Nasal Cannula 2.0 28 03/25/17 12:00 108 03/25/17 11:49 97.5 95 21 105/60 92 Nasal Cannula 2.0 03/25/17 08:00 97.9 90 20 110/75 92 Nasal Cannula 4.0 03/25/17 08:00 84 03/25/17 07:23 89 16 98 Nasal Cannula 2.0 28 03/25/17 07:17 Nasal Cannula 2.0 03/25/17 07:17 84 16 98 Nasal Cannula 2.0 28 03/25/17 07:17 98 Nasal Cannula 2.0 03/25/17 04:00 82 03/25/17 04:00 97.2 88 20 101/62 98 Nasal Cannula 4.0 03/25/17 01:16 92 18 98 Nasal Cannula 2.0 28 03/25/17 01:06 93 20 98 Nasal Cannula 2.0 28 03/25/17 00:00 97.0 94 20 108/74 98 Nasal Cannula 4.0 03/25/17 00:00 87 03/24/17 21:28 Nasal Cannula 03/24/17 21:28 Nasal Cannula 03/24/17 21:27 97 Nasal Cannula 4.0 03/24/17 21:27 Nasal Cannula 4.0 03/24/17 20:30 86 03/24/17 20:30 97.9 99 20 106/72 97 Nasal Cannula 4.0 03/24/17 20:20 90 23 102/71 97 Nasal Cannula 4.0 03/24/17 19:20 97.2 90 23 102/71 97 Nasal Cannula 4.0 03/24/17 18:36 98.5 90 20 107/72 94 Nasal Cannula 4.0 03/24/17 17:30 98.2 86 17 102/76 95 Simple Mask 6.0 Intake and Output 03/24/17 03/25/17 19:00 07:00 Intake Total 1000 ml 240 ml Output Total 250 ml Balance 1000 ml -10 ml Intake Oral 240 ml IV Total 1000 ml Output Urine Total 250 ml # Voids 1 # Bowel Movements 4 Laboratory Tests Test 03/25/17 03:40 03/25/17 05:00 Sodium Level 140 mEQ/L (135-145) Potassium Level 3.5 mEQ/L (3.4-4.9) Chloride Level 97 mEQ/L (98-107) L Carbon Dioxide Level 27 mEQ/L (20-30) Anion Gap 16 (5-15) H Blood Urea Nitrogen 21 mg/dL (7-23) Creatinine 1.2 mg/dL (0.7-1.2) Estimat Glomerular Filtration Rate mL/min (>60) Glucose Level 93 mg/dL (74-106) Plasma/Serum Osmolality Pending Uric Acid 10.7 mg/dL (3.0-7.5) H Calcium Level 9.0 mg/dL (8.6-10.2) Phosphorus Level 3.2 mg/dL (2.5-4.8) Magnesium Level 1.8 mg/dL (1.7-2.5) Total Bilirubin 1.5 mg/dL (0.0-1.2) H Direct Bilirubin 0.6 mg/dL (0.1-0.3) H Aspartate Amino Transf (AST/SGOT) 183 U/L (5-40) H Alanine Aminotransferase (ALT/SGPT) 52 U/L (3-41) H Alkaline Phosphatase 74 U/L (40-129) Total Creatine Kinase 5566 U/L (38-174) H Total Protein 6.3 g/dL (6.6-8.7) L Albumin 3.4 g/dL (3.5-5.2) L Globulin 2.9 g/dL Albumin/Globulin Ratio 1.1 (1.0-2.7) Thyroid Stimulating Hormone (TSH) 0.549 uIU/mL (0.300-4.500) Free Thyroxine 1.23 ng/dL (0.86-1.85) Free Triiodothyronine Pending Cortisol Pending Urine Color Brown Urine Appearance Clear Urine pH 5 (4.5-8.0) Urine Specific [place] 1.020 (1.005-1.035) Urine Protein 1+ (NEGATIVE) H Urine Glucose (UA) Negative (NEGATIVE) Urine Ketones 3+ (NEGATIVE) H Urine Occult Blood 1+ (NEGATIVE) H Urine Nitrite Negative (NEGATIVE) Urine Bilirubin 1+ (NEGATIVE) H Urine Ictotest Positive Urine Urobilinogen 8 MG/DL (0.0-1.0) H Urine Leukocyte Esterase 1+ (NEGATIVE) H Urine RBC 0-2 /HPF (0 - 0) H Urine WBC 0-2 /HPF (0 - 0) Urine Squamous Epithelial Cells Occasional /LPF Urine Bacteria Few /HPF (NONE) Urine Eosinophils None seen Urine Osmolality Pending Urine Random Sodium 28 mmol/L Urine Random Chloride 32 mmol/L Urine Potassium Timed 29 mmol/L Microbiology Date/Time Source Procedure Growth Status 03/24/17 16:20 Urine,Clean Catch Urine Culture - Preliminary Resulted FREDERIC CORDERO March 25, 2017 16:54
[2017-03-25] MEDS ORDERED: cefTRIAXone 1 GM in D5W 50 ML IVPB SCH (17:00)
[2017-03-25] MEDS ORDERED: NS 275ml ONE (17:23)
[2017-03-25] MEDS ORDERED: Nitroglycerin Subl 0.4mg tab (Bottle Of 25) SL PRN (18:00)
[2017-03-25] MEDS ORDERED: Mylanta II UD 30ml ORAL PRN (18:15)
[2017-03-25] MEDS ORDERED: Morphine Sulfate 2mg/ml Inj IVP PRN (18:15)
[2017-03-25] MEDS ORDERED: Miralax 17gm pkt ORAL PRN (18:15)
[2017-03-25] MEDS ORDERED: LORazepam Inj 2mg/ml 1ml IV PRN (18:15)
[2017-03-25] MEDS ORDERED: DuoNeb 0.5-3(2.5)mg/3ml neb HHN PRN (18:15)
[2017-03-25 20:00] VITALS: BP 115/87
[2017-03-25] MEDS: TraZODone 50mg tab ORAL SCH (20:59)
--- NOTE | 2017-03-25 20:59 | History and Physical Report ---
DATE OF ADMISSION: 03/24/2017 PRIMARY DOCTOR: Bjorn Jones M.D. REASON FOR ADMISSION: Altered mental status. HISTORY OF PRESENT ILLNESS: The patient is a very pleasant male with past medical history significant for history of chronic obstructive pulmonary disease, history of congestive heart failure, history of depression, history of degenerative joint disease, history of avascular necrosis of the right hip and chronic pain syndrome who was actually was visiting his primary physician, Dr. Bjorn Jones when he fell outside of the office and hit back of his head. Paramedics called. The patient was brought into the emergency room. In the emergency room, the patient had an CT of the head, which was negative; however, the patient found to have an persistent low O2 saturation and also found to have an elevation of the CPK. His creatinine also found to be elevated more than his baseline. The patient was consequently resuscitated with intravenous fluids. I was called for admission. PAST MEDICAL HISTORY: 1. History of lipodystrophy. 2. History of acute renal failure. 3. History of chronic kidney disease. 4. History of positive PPD. 5. History of depression. 6. Chronic pain syndrome. 7. History of vitamin D deficiency. 8. History of chronic obstructive pulmonary disease. ALLERGIES: Allergies to penicillin. MEDICATIONS: Medications at home are includin. Symbicort one puff twice a day. 2. Genvoya one tablet by mouth daily. 3. Lasix 20 mg p.o. daily. 4. Motrin 60 mg p.o. daily. 5. Promethazine as needed cough. 6. Seroquel 200 mg by mouth daily. 7. Daliresp 500 mg p.o. daily. 8. Serostim 6 mg bedtime. 9. Desyrel 50 mg p.o. daily. SOCIAL HISTORY: Quit smoking 3 months ago. Denies any history of alcohol or drug use. FAMILY HISTORY: Noncontributory. REVIEW OF SYSTEMS: General: He complained of generalized weakness. Denied any fever, chills, or night sweats. Head And Neck: Denies any dysphagia, odynophagia, blurry vision, headache, or neck stiffness. Pulmonary: Complained of shortness of breath, cough, yellow sputum. Cardiovascular: Mild chest pain. Has some orthopnea. No PND. No leg swelling. Gastrointestinal: No nausea, vomiting, diarrhea, hematemesis, or hematochezia. Genitourinary: Denies any dysuria, frequency, or hematuria. Musculoskeletal: He denies any weakness or numbness. Complained of headache which was resolved. LABORATORY VALUES: The patient had WBC count of 7.6, hemoglobin of 15, hematocrit of 47, platelet count of 159,000. Chemistry reveals sodium 140, potassium 3.5, chloride 97, bicarb 27, BUN of 21, creatinine of 1.2, glucose of 93. Uric acid of 10.7. Calcium of 9. Phosphorus of 3.2. ALT of 183, AST of 52, alkaline phosphatase 566. Total protein of 6.3, albumin of 3.4. UA revealed specific gravity of 1.020, protein 1+, ketones 3+, blood 1+, bilirubin 1+, leukocyte esterase 1+, WBC 0 to 2, RBCs 0 to 2. The patient found to have an elevation of the lactic acid of 4.7. ASSESSMENT: 1. Acute renal failure. 2. Chronic kidney disease. 3. Syncopal episode. 4. Hypotension. 5. Mild elevation in liver enzyme. 6. History of chronic obstructive pulmonary disease with questionable congestive heart failure. 7. Elevation of the CPK, possible rhabdomyolysis was unlikely. PLAN: Plan for patient, to admit the patient. Put the patient on BiPAP as needed Pulmonary consultation. Check the serial EKG and cardiac enzymes. I would check the random urine protein and creatinine ratio to calculate the proteinuria. Check the urine sodium and creatinine to calculate fractional excretion of sodium. I would check the inputs and outputs, daily weight. Restart home medications. Tessy Guthrie M.D. DR: Brian JOB#: [id number] CC:
[2017-03-25] MEDS ORDERED: TraZODone 50mg tab ORAL SCH (21:00)
[2017-03-25] MEDS ORDERED: Promethazine Plain 6.25mg/5ml ORAL SCH (21:00)
[2017-03-25] MEDS: metroNIDAZOLE 500mg 100 ML IVPB SCH (22:27)
[2017-03-26] VITALS: BP 104/67
--- NOTE | 2017-03-26 00:09 | Consultation ---
DATE OF CONSULTATION: 03/25/2017 CARDIOLOGY CONSULTATION: CONSULTING PHYSICIAN: Luan Shah M.D. ATTENDING PHYSICIAN: Tessy Guthrie M.D. REFERRING PHYSICIAN: Tessy Guthrie M.D. REASON FOR CONSULTATION: Management of hypotension. HISTORY OF PRESENT ILLNESS: The patient is a very unfortunate 77-year-old gentleman, known to me, who presents to the hospital after an episode of fall at the physician's office. Apparently, the patient started headache in the back around the occipital area, presents to this hospital for further evaluation and management. ER physician noted that the patient has altered mental status. His initial vital signs, blood pressure was 83/56 mm/Hg and heart rate was 98, thus Cardiology consultation. The patient was admitted to telemetry for further evaluation and management of hypotension and tachycardia at the request of Dr. Guthrie. The patient does not have any history of coronary artery disease or cardiac arrhythmias. He has history of CHF, per records. It is not clear whether there is any loss of consciousness associated with the above events. LIST OF MEDICATIONS: 1. Symbicort one puff twice daily. 2. Econazole 30 g topical twice daily. 3. Genvoya tablet one tablet daily. 4. Lasix 20 mg p.o. daily. 5. Morphine sulfate 10 mg p.o. daily. 6. Promethazine 5 mL daily at bedtime. 7. Seroquel 200 mg daily. 8. Roflumilast 500 mcg p.o. daily. 9. Somatropin 6 mg subcutaneously at bedtime. 10. Trazodone 50 mg p.o. daily at bedtime. PAST MEDICAL HISTORY: Hypertension, asthma/COPD, and history of depression. ALLERGIES: Penicillin. REVIEW OF SYSTEMS: HEENT: He has occipital headache as a result of fall and blunt trauma. He denies any regular headaches or dizziness or lightheadedness. Constitutional: He denies any fever, chills, night sweats, or weight loss. Cardiovascular: He denies any chest pain. He has shortness of breath with his regular activities of daily living. He denies any PND, orthopnea, or leg swelling. He denies any loss of consciousness or palpitation. Pulmonary: He denies any cough, hemoptysis, or wheezing. He has got shortness of breath due to COPD. GI: He denies any nausea, vomiting, diarrhea, constipation, abdominal pain, or GI bleed. Genitourinary: He denies any hematuria, dysuria, or incontinence. Neurology: He denies any motor dysfunction, sensory deficit, or altered speech. PHYSICAL EXAMINATION: VITAL SIGNS: On arrival to the emergency department, blood pressure is 83/56, respirations 18, pulse 98, temperature 98.4 degrees Fahrenheit, and O2 saturation 90% on room air. GENERAL: The patient is a very pleasant 77-year-old gentleman, in no apparent respiratory distress, alert, and oriented x2. HEENT: Atraumatic and normocephalic. Anicteric. Pupils are equal, round, and reactive to light and accommodation. Extraocular muscles are intact. NECK: JVP is less than 5 cm. No carotid bruits. Carotid upstroke is 2+ bilaterally. CVS: Normal S1 and S2. Distant. No murmurs, gallops, or rubs. PMI is at fourth intercostal space at the midclavicular line. LUNGS: Diminished breath sounds in both lungs. ABDOMEN: Soft and nontender. Distended. Positive bowel sounds. EXTREMITIES: No evidence of edema, clubbing, or cyanosis. LABORATORY AND DIAGNOSTIC FINDINGS: WBC was 7.6, hemoglobin 15.2, hematocrit 47.2%, and platelet count 159,000. Sodium is 139, potassium 3.3, chloride 92, bicarbonate 22, BUN 29, creatinine 2.0, glucose 96, and calcium 9.1. AST was 248 and ALT 61. Troponin I was less than 0.3. ProBNP was 14,717. CT of head showed no acute intracranial bleed, mass effect, or edema. Mild atrophy of the brain. Cervical spine CT showed no acute injury, moderate spondylosis, status post anterior interbody fusion, C3-C5, and atherosclerotic cardiovascular disease. A 2-D echocardiography done on 03/25/2017, revealed RV pressure overload with mild dilatation of the right ventricle and severely decreased RV systolic function, normal left ventricular systolic function, LVEF over 60% and E to A wave reversal consistent with grade 1 LV diastolic dysfunction or impaired LV relaxation. ASSESSMENT AND PLAN: The patient is a very unfortunate 77-year-old gentleman, seen in Cardiology consultation at the request of Dr. Guthrie. 1. Hypotension, most likely secondary to affect of the narcotics that the patient had been on. The patient requires hydration. Of note, a 2-D echocardiography shows no evidence of congestive heart failure with normal intracardiac filling pressures. 2. Right ventricular dilatation with decreased right ventricular systolic function, possibly due to chronic obstructive pulmonary disease. 3. Sinus tachycardia due to hypotension and/or hypoxemia. 4. Elevated beta-natriuretic peptide, most likely secondary to right ventricular dilatation and this does not signify acute left-sided left heart failure. Therefore, the patient would not benefit from any diuretic therapy at this point. 5. History of chronic obstructive pulmonary disease. I would like to thank, Dr. Guthrie for allowing me to participate in the care of this patient. Luan Shah M.D. DR: Arnoldo JOB#: [id number] CC:
--- NOTE | 2017-03-26 00:29 | Consultation ---
DATE OF CONSULTATION: 03/25/2017 INFECTIOUS DISEASE CONSULTATION CONSULTING PHYSICIAN: Nandini Camilo M.D. REFERRING PHYSICIAN: Tessy Guthrie M.D. REASON FOR CONSULTATION: Possible UTI, elevated lactic acid, possible sepsis, and antibiotic management in the patient with HIV. CHIEF COMPLAINT: The patient's chief complaint coming in to the hospital is hypotension, lactic acidosis, and rhabdomyolysis. HISTORY OF PRESENT ILLNESS: This is a 77-year-old male. He is a very poor historian at this time. It is unclear if he has altered mental status. He is able to answer some questions however. The patient had a fall and struck his head. The patient does have a history of recent alcohol use. The patient was admitted to [facility]. CT scan of the head showed no acute intracranial bleed, edema, or mass effect. The patient had congestion, mild shortness of breath, also COPD, and past medical history of bronchitis. Chest x-ray read in the emergency room was negative. Of importance, the patient had significant lactic acid level elevation of 7.4 and he had a positive urinalysis. Infectious Disease consultation is requested for antibiotic management in this patient. Of note, total bilirubin is also elevated. Abdominal ultrasound was ordered. The patient will be placed on Rocephin and Flagyl and cultured. MAR was noted. Orders were noted. Notes and records were reviewed. Case was discussed with Dr. Guthrie. PAST MEDICAL HISTORY: The patient's past medical history includes the following. The patient has a past medical history of HIV. He states his T-cell count is over 500. He is on Genvoya, which is not available here at [facility]. Other past medical history includes history of fall as discussed earlier. He has a history of encephalopathy and acute tubular necrosis. He has a history of COPD. He has a history of asthma, early dementia, history of depression, and history of hypertension. Please see past medical history in medical order. MEDICATIONS: He is on the following medications: The patient is on morphine and trazodone. I put him on Rocephin and Flagyl. He is on folic acid, thiamine, Librium, Phenergan, Seroquel, heparin, DuoNeb, and albuterol. He is on Tylenol, morphine, MiraLAX, Zofran, Ativan, Restoril, Mylanta, and clonidine. Please see medications in medical order. ALLERGIES: Includes penicillin, however when I reviewed the records, in 2015, he was able to tolerate Rocephin. He had it for several days at least. SOCIAL HISTORY: Positive for past smoker. did mention that he had alcohol use prior to this admission. No history of a drug abuse. FAMILY HISTORY: Noncontributory. Negative for exposure to tuberculosis or cancer. REVIEW OF SYSTEMS: Constitutional: The patient has no Shah. He has no central line. He has generalized weakness and fatigue. He has a history of fall. He has no fevers or chills. He has no weight loss or night sweats. Head And Neck: No head pain, neck pain, or neck symptoms. Pulmonary: He has mild congestion, but no significant secretion. Cardiac: No chest pain or palpitations. Gastrointestinal: May be some abdominal discomfort. No nausea, vomiting, or diarrhea. Genitourinary: There may be some dysuria and frequency, but no significant CVA tenderness. Pulmonary: No congestion or shortness of breath. Skin: No rash or itching. Extremities: No extremity pain. Neurological: No seizures. PHYSICAL EXAMINATION: VITAL SIGNS: Temperature 97.5 degrees, pulse rate 108, respiratory rate 18, as high as 23, saturation 98%, FiO2 2%, and pulse rate 92. His saturation was as low as 87%. GENERAL: Alert, responsive, and in no acute distress. HEAD AND NECK: Oral exam, no thrush. Eye exam, no icterus. Normocephalic. No facial droop. No neck stiffness. LUNGS: Few bilateral rhonchi. No rales. HEART: Regular. No gallop or murmur. ABDOMEN: Soft. Positive bowel sounds. Nontender. MUSCULOSKELETAL: No effusion or contractures. Legs are without cellulitis. PERIPHERAL VASCULAR: No cyanosis or gangrene. SKIN: No rash. RECTAL: Deferred. GENITOURINARY: No Shah. LINES: Line sites is without phlebitis. NEUROLOGIC: Generalized weakness. Responsive. LABORATORY DATA: Laboratory data is as follows: White count is 7.6 and hemoglobin 15.2. The patient's creatinine is 1.2. Lactic acid level on admission was 7.4 and subsequent lactic acid is 4.7 and 1.2. Total bilirubin is 1.5. Alkaline phosphatase is 74. AST is 183. Urinalysis had positive leukocyte esterase and moderate bacteria. Chest x-ray has been ordered for tomorrow. Initial chest x-ray reviewed in the ER was negative for consolidation. CT scan of the head showed no acute disease. Ultrasound of the abdomen is pending. ASSESSMENT AND PLAN: 1. The patient has elevated lactic acid level with altered mental status, tachycardia, and increase in respiratory rate and hypoxia. The patient could have early sepsis, systemic inflammatory response syndrome criteria. The etiology of the acidosis and sepsis is unclear. Certainly, Genvoya and its components can cause elevated lactic acid. We will hold Genvoya at this time. differential diagnoses includes possible urinary tract infection, possible biliary tract infection, history of cholangitis, cholecystitis, also respiratory infection, and community-acquired pneumonia. The patient has some component of hypoxia at this time. At this time, the patient will be placed on broad-spectrum antibiotics. I will give him Rocephin and Flagyl. This would be good coverage for urinary tract infection and in addition good coverage for pulmonary pathogens for community-acquired pneumonia. Check ultrasound of the abdomen. Check blood cultures. Watch lactic acid level. Check lactate dehydrogenase. Check followup chest x-ray and labs. Continue pulmonary treatment at this time. 2. The patient has history of human immunodeficiency virus. His T-cell count per the patient is over 500. We will check CD4 count level. Again, hold Genvoya for now because of elevated lactic acid. 3. The patient has a history of asthma. 4. Chronic obstructive pulmonary disease. 5. Upper respiratory infection and bronchitis. 6. Asthma. 7. Hypertension. 8. Blood pressure control per primary. 9. Depression. 10. Acute tubular necrosis. 11. Encephalopathy. 12. Hypokalemia. 13. Ethyl alcohol use. 14. Nicotine dependency and past history of smoking. 15. Allergy to penicillin, tolerated cephalosporins in the past including Rocephin. 16. Family history is noncontributory. 17. MAR was noted. 18. Case was discussed with RN. 19. Notes were reviewed. 20. Continue treatment per primary consultants. Nandini Camilo M.D. DR: RAMON JOB#: [id number] CC:
[2017-03-26] MEDS: DuoNeb 0.5-3(2.5)mg/3ml neb HHN SCH ×4 (01:00→19:50)
[2017-03-26 04:00] VITALS: BP 140/95
[2017-03-26 04:13] LABS: FREE TRIIODOTHYRONINE 2.3 pg/mL (2.0-4.4)
[2017-03-26 06:14] LABS: CORTISOL LC 6.8 ug/dL (.)
[2017-03-26] MEDS: metroNIDAZOLE 500mg 100 ML IVPB SCH ×3 (06:26→21:56)
[2017-03-26 07:07] LABS: BASOPHILS % (AUTO) 1.3 % (0.0-2.0); EOSINOPHILS % (AUTO) 1.1 % (0.0-3.0); LYMPHOCYTES % (AUTO) 26.6 % (20.0-45.0); MEAN CORPUSCULAR HEMOGLOBIN 35.3 PG (27.0-31.0); MEAN CORPUSCULAR HGB CONC 33.6 G/DL (32.0-36.0); MEAN CORPUSCULAR VOLUME 105 FL (80-99); MONOCYTES % (AUTO) 16.2 % (1.0-10.0); NEUTROPHILS % (AUTO) 54.8 % (45.0-75.0); PLATELET COUNT 143 K/UL (150-450); RED BLOOD COUNT 3.87 M/UL (4.70-6.10); RED CELL DISTRIBUTION WIDTH 13.4 % (11.6-14.8); WHITE BLOOD COUNT 4.4 K/UL (4.8-10.8)
[2017-03-26 07:31] LABS: ALANINE AMINOTRANSFERASE 42 U/L (3-41); ALBUMIN/GLOBULIN RATIO 1.1 (1.0-2.7); ANION GAP 13 (5-15); ASPARTATE AMINO TRANSFERASE 115 U/L (5-40); CARBON DIOXIDE 29 mEQ/L (20-30); CHLORIDE 102 mEQ/L (98-107); CREATININE 0.9 mg/dL (0.7-1.2); HEMOLYSIS 5; POTASSIUM 3.4 mEQ/L (3.4-4.9); SODIUM 144 mEQ/L (135-145); TOTAL PROTEIN 5.9 g/dL (6.6-8.7)
[2017-03-26 08:00] VITALS: BP 127/91
[2017-03-26 08:05] LABS: BILIRUBIN,DIRECT 0.5 mg/dL (0.1-0.3)
[2017-03-26] MEDS: MS Contin 15mg tab ORAL SCH (08:36)
[2017-03-26] MEDS: QUEtiapine 200mg tab ORAL SCH (08:36)
[2017-03-26] MEDS: Heparin 5000 units/ml inj SUBQ SCH ×2 (08:36→21:00)
[2017-03-26] MEDS ORDERED: MS Contin 15mg tab ORAL SCH (09:00)
--- NOTE | 2017-03-26 10:40 | Diagnostic Imaging Report ---
Indication: Shortness of breath Technique: XRAY CHEST 1 V Comparison: 03/24/17 Findings: Cardiomediastinal silhouette is stable. Linear and hazy opacities are again noted in the lung bases. No new infiltrates are seen. Degenerative changes of the spine are noted. Impression: No interval change from 03/24/17.
[2017-03-26 12:00] VITALS: BP 118/45
[2017-03-26] MEDS ORDERED: NS 275ml ONE (15:57)
[2017-03-26 16:00] VITALS: BP 106/86
[2017-03-26] MEDS ORDERED: Tubing IV Secondary IV ONE (16:01)
[2017-03-26] MEDS: Thiamine HCl 100 MG in D5W 55 ML IVPB SCH (16:08)
[2017-03-26] MEDS: Folic Acid 1 MG, Magnesium Sulfate 2,000 MG, Multivitamin - 12 Injection 10 ML in NS w/... IV SCH (16:08)
--- NOTE | 2017-03-26 16:50 | Nephrology Progress Note ---
Assessment/Plan Assessment 1. Acute renal failure. 2. Chronic kidney disease. 3. Syncopal episode. 4. Hypotension. 5. Mild elevation in liver enzyme. 6. History of chronic obstructive pulmonary disease with questionable congestive heart failure. 7. abdominal pain Plan plan to continue current meds iv antibiotic for UTI restart lasix fleet enema pt/ot breathing treatment Subjective Constitutional: Reports: malaise, weakness HEENT: Reports: no symptoms Genitourinary: Reports: no symptoms Neurologic/Psychiatric: Reports: no symptoms Subjective alert and awake less sob c/o abd pain and distention constipation Objective Objective Last 24 Hour Vital Signs Date Time Temp Pulse Resp B/P Pulse Ox O2 Delivery O2 Flow Rate FiO2 03/26/17 13:57 Nasal Cannula 03/26/17 13:55 Nasal Cannula 03/26/17 12:00 97.0 71 18 118/45 100 Room Air 03/26/17 08:25 55 16 98 Nasal Cannula 3.0 03/26/17 08:15 51 16 93 Nasal Cannula 3.0 03/26/17 08:02 Nasal Cannula 3.0 03/26/17 08:01 93 Nasal Cannula 3.0 03/26/17 08:00 97.2 72 17 127/91 97 Nasal Cannula 2.0 03/26/17 04:00 85 03/26/17 04:00 97.2 86 20 140/95 95 Nasal Cannula 2.0 03/26/17 01:05 95 16 99 Nasal Cannula 3.0 03/26/17 00:58 82 18 96 Nasal Cannula 3.0 03/26/17 00:00 97.2 89 20 104/67 95 Nasal Cannula 3.0 03/26/17 00:00 84 03/25/17 20:00 87 03/25/17 20:00 97.3 86 20 115/87 95 Nasal Cannula 3.0 03/25/17 19:30 93 16 99 Nasal Cannula 3.0 03/25/17 19:19 91 18 97 Nasal Cannula 3.0 03/25/17 19:18 97 Nasal Cannula 3.0 03/25/17 19:18 Nasal Cannula 3.0 Intake and Output 03/25/17 03/26/17 19:00 07:00 Intake Total 400 ml 1100 ml Output Total 101 ml 450 ml Balance 299 ml 650 ml Intake Oral 400 ml IV Total 1100 ml Output Urine Total 100 ml 450 ml Stool Total 1 ml # Voids 2 3 Laboratory Tests 03/26/17 06:10: White Blood Count [Pending], Red Blood Count 3.87L, Hemoglobin 13.7L, Hematocrit 40.7L, Mean Corpuscular Volume 105H, Mean Corpuscular Hemoglobin 35.3H, Mean Corpuscular Hemoglobin Concent 33.6, Red Cell Distribution Width 13.4, Platelet Count 143L, Mean Platelet Volume 7.0, Neutrophils (%) (Auto) 54.8 , Lymphocytes (%) (Auto) 26.6, Monocytes (%) (Auto) 16.2H, Eosinophils (%) (Auto ) 1.1, Basophils (%) (Auto) 1.3, Lymphocytes [Pending], Sodium Level 144, Potassium Level 3.4, Chloride Level 102, Carbon Dioxide Level 29, Anion Gap 13, Blood Urea Nitrogen 13, Creatinine 0.9, Estimat Glomerular Filtration Rate , Glucose Level 104, Calcium Level 9.0, Total Bilirubin 1.2, Direct Bilirubin 0.5H , Aspartate Amino Transf (AST/SGOT) 115H, Alanine Aminotransferase (ALT/SGPT) 42H, Alkaline Phosphatase 63, Total Protein 5.9L, Albumin 3.2L, Globulin 2.7, Albumin/Globulin Ratio 1.1, Percent CD3 Cells [Pending], Absolute CD3 Count [ Pending], Percent CD4 Cells [Pending], Absolute CD4 Count [Pending], T- Lymphocyte CD4/CD8 Ratio [Pending], Percent CD8 Cells [Pending], Absolute CD8 Count [Pending], Hepatitis A IgM Antibody [Pending], Hepatitis B Surface Antigen [Pending], Hepatitis B Core IgM Antibody [Pending], Hepatitis C Antibody [Pending] Height (Feet): 5 Height (Inches): 6.00 Weight (Pounds): 142 Objective GENERAL: The patient is a very pleasant 77-year-old gentleman, in no apparent respiratory distress, alert, and oriented x2. HEENT: Atraumatic and normocephalic. Anicteric. Pupils are equal, round, and reactive to light and accommodation. Extraocular muscles are intact. NECK: JVP is less than 5 cm. No carotid bruits. Carotid upstroke is 2+ bilaterally. CVS: Normal S1 and S2. Distant. No murmurs, gallops, or rubs. PMI is at fourth intercostal space at the midclavicular line. LUNGS: Diminished breath sounds in both lungs. ABDOMEN: Soft and nontender. Distended. Positive bowel sounds. EXTREMITIES: No evidence of edema, clubbing, or cyanosis. CHARLIE FLANAGAN March 26, 2017 16:50
[2017-03-26] MEDS ORDERED: cefTRIAXone 1 GM in D5W 50 ML IVPB SCH (17:00)
[2017-03-26] MEDS ORDERED: Fleet's Mineral Oil Enema RECTAL ONE (17:00)
[2017-03-26 20:00] VITALS: BP 109/71
[2017-03-26] MEDS: TraZODone 50mg tab ORAL SCH (20:46)
--- NOTE | 2017-03-26 22:10 | Pulmonology Progress Note ---
Assessment/Plan Problems: (1) Acute encephalopathy (2) ATN (acute tubular necrosis) (3) COPD (chronic obstructive pulmonary disease) (4) Acute renal injury (5) Hypokalemia (6) HIV disease Assessment/Plan feeling better, less short of breath check cultures pt/ot Subjective ROS Limited/Unobtainable: No Allergies: Coded Allergies: PENICILLIN G (Verified Allergy, Unknown, 03/24/17) PENICILLINS (Unverified Allergy, Unknown, 03/24/17) Objective Last 24 Hour Vital Signs Date Time Temp Pulse Resp B/P Pulse Ox O2 Delivery O2 Flow Rate FiO2 03/26/17 20:00 98.1 85 20 109/71 98 Nasal Cannula 2.0 03/26/17 19:59 85 16 98 Nasal Cannula 4.0 36 03/26/17 19:52 96 Nasal Cannula 4.0 36 03/26/17 19:52 Nasal Cannula 4.0 36 03/26/17 19:50 84 18 96 Nasal Cannula 4.0 03/26/17 16:00 97.4 80 17 106/86 99 Room Air 03/26/17 16:00 72 03/26/17 13:57 Nasal Cannula 03/26/17 13:55 Nasal Cannula 03/26/17 12:00 97.0 71 18 118/45 100 Room Air 03/26/17 12:00 90 03/26/17 08:25 55 16 98 Nasal Cannula 3.0 03/26/17 08:15 51 16 93 Nasal Cannula 3.0 03/26/17 08:02 Nasal Cannula 3.0 03/26/17 08:01 93 Nasal Cannula 3.0 03/26/17 08:00 84 03/26/17 08:00 97.2 72 17 127/91 97 Nasal Cannula 2.0 03/26/17 04:00 85 03/26/17 04:00 97.2 86 20 140/95 95 Nasal Cannula 2.0 03/26/17 01:05 95 16 99 Nasal Cannula 3.0 03/26/17 00:58 82 18 96 Nasal Cannula 3.0 03/26/17 00:00 97.2 89 20 104/67 95 Nasal Cannula 3.0 03/26/17 00:00 84 Intake and Output 03/25/17 03/26/17 19:00 07:00 Intake Total 400 ml 1100 ml Output Total 101 ml 450 ml Balance 299 ml 650 ml Intake Oral 400 ml IV Total 1100 ml Output Urine Total 100 ml 450 ml Stool Total 1 ml # Voids 2 3 General Appearance: cachetic HEENT: normocephalic, atraumatic Respiratory/Chest: chest wall non-tender, decreased breath sounds Cardiovascular: normal peripheral pulses, normal rate Abdomen: normal bowel sounds, soft, non tender Genitourinary: normal external genitalia Extremities: no cyanosis Microbiology Date/Time Source Procedure Growth Status 03/24/17 16:20 Blood Blood Culture - Preliminary NO GROWTH AFTER 24 HOURS Resulted 03/24/17 16:20 Blood Blood Culture - Preliminary NO GROWTH AFTER 24 HOURS Resulted 03/24/17 16:20 Urine,Clean Catch Urine Culture - Final Mixed Gram Positive Organism Complete Laboratory Tests 03/26/17 06:10: White Blood Count [Pending], Red Blood Count 3.87L, Hemoglobin 13.7L, Hematocrit 40.7L, Mean Corpuscular Volume 105H, Mean Corpuscular Hemoglobin 35.3H, Mean Corpuscular Hemoglobin Concent 33.6, Red Cell Distribution Width 13.4, Platelet Count 143L, Mean Platelet Volume 7.0, Neutrophils (%) (Auto) 54.8 , Lymphocytes (%) (Auto) 26.6, Monocytes (%) (Auto) 16.2H, Eosinophils (%) (Auto ) 1.1, Basophils (%) (Auto) 1.3, Lymphocytes [Pending], Sodium Level 144, Potassium Level 3.4, Chloride Level 102, Carbon Dioxide Level 29, Anion Gap 13, Blood Urea Nitrogen 13, Creatinine 0.9, Estimat Glomerular Filtration Rate , Glucose Level 104, Calcium Level 9.0, Total Bilirubin 1.2, Direct Bilirubin 0.5H , Aspartate Amino Transf (AST/SGOT) 115H, Alanine Aminotransferase (ALT/SGPT) 42H, Alkaline Phosphatase 63, Total Protein 5.9L, Albumin 3.2L, Globulin 2.7, Albumin/Globulin Ratio 1.1, Percent CD3 Cells [Pending], Absolute CD3 Count [ Pending], Percent CD4 Cells [Pending], Absolute CD4 Count [Pending], T- Lymphocyte CD4/CD8 Ratio [Pending], Percent CD8 Cells [Pending], Absolute CD8 Count [Pending], Hepatitis A IgM Antibody [Pending], Hepatitis B Surface Antigen [Pending], Hepatitis B Core IgM Antibody [Pending], Hepatitis C Antibody [Pending] Current Medications Medications (Trade) Dose Ordered Sig/[place]oul Route PRN Reason Start Time Stop Time Status Last Admin Dose Admin Acetaminophen (Tylenol) 650 mg Q4H PRN ORAL fever 03/25/17 18:15 04/24/17 18:14 Al Hydroxide/Mg Hydroxide (Mylanta II) 30 ml Q6H PRN ORAL dyspepsia 03/25/17 18:15 04/24/17 18:14 Albuterol/ Ipratropium (DuoNeb 0.5-3(2.5)mg/3ml) 3 ml Q4H PRN HHN Shortness of Breath 03/25/17 18:15 03/30/17 18:14 Albuterol/ Ipratropium (DuoNeb 0.5-3(2.5)mg/3ml) 3 ml Q6HRT HHN 03/25/17 19:00 03/30/17 18:59 03/26/17 19:50 Ceftriaxone Sodium 1 gm/ Dextrose 50 ml @ 100 mls/hr Q24H IVPB 03/26/17 17:00 04/02/17 16:59 03/26/17 18:11 Chlordiazepoxide (Librium) 25 mg Q6H PRN ORAL Agitation 03/25/17 19:30 04/01/17 19:29 Clonidine HCl (Catapres) 0.1 mg Q4H PRN ORAL SBP > 160 03/25/17 18:15 04/24/17 18:14 Dextrose (Dextrose 50%) STAT PRN IV Hypoglycemia 03/25/17 18:15 04/24/17 18:14 Folic Acid 1 mg/ Magnesium Sulfate 2000 mg/ Multivitamins 10 ml/Sodium Chloride 1,014.2 ml @ 125 mls/ hr Q24H IV 03/26/17 15:00 04/25/17 14:59 03/26/17 16:08 Heparin Sodium (Porcine) (Heparin 5000 units/ml) 5,000 units EVERY 12 HOURS SUBQ 03/25/17 21:00 04/24/17 20:59 03/25/17 21:03 Lorazepam (Ativan 2mg/ml 1ml) 0.5 mg Q4H PRN IV For Anxiety 5/12/17 18:15 04/01/17 18:14 Metronidazole 100 ml @ 100 mls/hr Q8HR IVPB 03/25/17 22:00 04/01/17 21:59 03/26/17 21:56 Morphine Sulfate (MS Contin) 15 mg DAILY ORAL 03/26/17 09:00 04/02/17 08:59 03/26/17 08:36 Morphine Sulfate (Morphine Sulfate) 1 mg Q4H PRN IVP For Pain 7-03/25/17 18:15 04/01/17 18:14 Nitroglycerin (Ntg) 0.4 mg Q5M X 3 DOSES PRN SL Prn Chest Pain 03/25/17 18:00 04/24/17 17:59 Ondansetron HCl (Zofran) 4 mg Q6H PRN IVP Nausea & Vomiting 03/25/17 18:15 04/24/17 18:14 Polyethylene Glycol (Miralax) 17 gm HSPRN PRN ORAL Constipation 03/25/17 18:15 04/24/17 18:14 Promethazine HCl/ Codeine (Phenergan with Codeine) 5 ml Q4H PRN ORAL For Cough 03/25/17 21:15 04/24/17 21:14 Quetiapine Fumarate (SEROquel) 200 mg DAILY ORAL 03/26/17 09:00 04/25/17 08:59 03/26/17 08:36 Temazepam (Restoril) 15 mg HSPRN PRN ORAL Insomnia 03/25/17 18:15 04/01/17 18:14 Thiamine HCl/ Dextrose (Vitamin B1/D5W) 56 ml @ 112 mls/hr Q24H IVPB 03/26/17 15:00 04/25/17 14:59 03/26/17 16:08 Trazodone HCl (Desyrel) 50 mg BEDTIME ORAL 03/25/17 21:00 04/24/17 20:59 03/26/17 20:46 YAJAIRA PRADO March 26, 2017 22:10
--- NOTE | 2017-03-26 23:37 | Cardiology Progress Note ---
Assessment/Plan Assessment/Plan 1. Hypotension, resolved, continue hydration, normal LVEF. 2. Cor pulmonale, with right ventricular dilatation and associated right ventricular systolic dysfunction, possibly due to chronic obstructive pulmonary disease. Pulmonary toilet, O2 therapy, inhalers and possibly steroids, 3. Sinus tachycardia, resolved, due to hypotension and/or hypoxemia. 4. Elevated beta-natriuretic peptide, most likely secondary to right ventricular dilatation. 5. History of chronic obstructive pulmonary disease. Subjective Subjective Sinus rhythm at 85. No cardiac events. Objective Last 24 Hour Vital Signs Date Time Temp Pulse Resp B/P Pulse Ox O2 Delivery O2 Flow Rate FiO2 03/26/17 20:00 80 03/26/17 20:00 98.1 85 20 109/71 98 Nasal Cannula 2.0 03/26/17 19:59 85 16 98 Nasal Cannula 4.0 36 03/26/17 19:52 96 Nasal Cannula 4.0 36 03/26/17 19:52 Nasal Cannula 4.0 36 03/26/17 19:50 84 18 96 Nasal Cannula 4.0 03/26/17 16:00 97.4 80 17 106/86 99 Room Air 03/26/17 16:00 72 03/26/17 13:57 Nasal Cannula 03/26/17 13:55 Nasal Cannula 03/26/17 12:00 97.0 71 18 118/45 100 Room Air 03/26/17 12:00 90 03/26/17 08:25 55 16 98 Nasal Cannula 3.0 03/26/17 08:15 51 16 93 Nasal Cannula 3.0 03/26/17 08:02 Nasal Cannula 3.0 03/26/17 08:01 93 Nasal Cannula 3.0 03/26/17 08:00 84 03/26/17 08:00 97.2 72 17 127/91 97 Nasal Cannula 2.0 03/26/17 04:00 85 03/26/17 04:00 97.2 86 20 140/95 95 Nasal Cannula 2.0 03/26/17 01:05 95 16 99 Nasal Cannula 3.0 03/26/17 00:58 82 18 96 Nasal Cannula 3.0 03/26/17 00:00 97.2 89 20 104/67 95 Nasal Cannula 3.0 03/26/17 00:00 84 Intake and Output 03/25/17 03/26/17 19:00 07:00 Intake Total 400 ml 1100 ml Output Total 101 ml 450 ml Balance 299 ml 650 ml Intake Oral 400 ml IV Total 1100 ml Output Urine Total 100 ml 450 ml Stool Total 1 ml # Voids 2 3 2D Echo: LVEF 60%, Mild AR, Grade I LVDD, RVSP 38 mmHg Laboratory Tests Test 03/26/17 06:10 White Blood Count Pending Red Blood Count 3.87 M/UL (4.70-6.10) L Hemoglobin 13.7 G/DL (14.2-18.0) L Hematocrit 40.7 % (42.0-52.0) L Mean Corpuscular Volume 105 FL (80-99) H Mean Corpuscular Hemoglobin 35.3 PG (27.0-31.0) H Mean Corpuscular Hemoglobin Concent 33.6 G/DL (32.0-36.0) Red Cell Distribution Width 13.4 % (11.6-14.8) Platelet Count 143 K/UL (150-450) L Mean Platelet Volume 7.0 FL (6.5-10.1) Neutrophils (%) (Auto) 54.8 % (45.0-75.0) Lymphocytes (%) (Auto) 26.6 % (20.0-45.0) Monocytes (%) (Auto) 16.2 % (1.0-10.0) H Eosinophils (%) (Auto) 1.1 % (0.0-3.0) Basophils (%) (Auto) 1.3 % (0.0-2.0) Lymphocytes Pending Sodium Level 144 mEQ/L (135-145) Potassium Level 3.4 mEQ/L (3.4-4.9) Chloride Level 102 mEQ/L (98-107) Carbon Dioxide Level 29 mEQ/L (20-30) Anion Gap 13 (5-15) Blood Urea Nitrogen 13 mg/dL (7-23) Creatinine 0.9 mg/dL (0.7-1.2) Estimat Glomerular Filtration Rate mL/min (>60) Glucose Level 104 mg/dL (74-106) Calcium Level 9.0 mg/dL (8.6-10.2) Total Bilirubin 1.2 mg/dL (0.0-1.2) Direct Bilirubin 0.5 mg/dL (0.1-0.3) H Aspartate Amino Transf (AST/SGOT) 115 U/L (5-40) H Alanine Aminotransferase (ALT/SGPT) 42 U/L (3-41) H Alkaline Phosphatase 63 U/L (40-129) Total Protein 5.9 g/dL (6.6-8.7) L Albumin 3.2 g/dL (3.5-5.2) L Globulin 2.7 g/dL Albumin/Globulin Ratio 1.1 (1.0-2.7) Percent CD3 Cells Pending Absolute CD3 Count Pending Percent CD4 Cells Pending Absolute CD4 Count Pending T-Lymphocyte CD4/CD8 Ratio Pending Percent CD8 Cells Pending Absolute CD8 Count Pending Hepatitis A IgM Antibody Pending Hepatitis B Surface Antigen Pending Hepatitis B Core IgM Antibody Pending Hepatitis C Antibody Pending Microbiology Date/Time Source Procedure Growth Status 03/24/17 16:20 Blood Blood Culture - Preliminary NO GROWTH AFTER 24 HOURS Resulted 03/24/17 16:20 Blood Blood Culture - Preliminary NO GROWTH AFTER 24 HOURS Resulted 03/24/17 16:20 Urine,Clean Catch Urine Culture - Final Mixed Gram Positive Organism Complete Objective HEENT: Atraumatic and normocephalic. Anicteric. Pupils are equal, round, and reactive to light and accommodation. Extraocular muscles are intact. NECK: JVP is less than 5 cm. No carotid bruits. Carotid upstroke is 2+ bilaterally. CVS: Normal S1 and S2. Distant. No murmurs, gallops, or rubs. PMI is at fourth intercostal space at the midclavicular line. LUNGS: Diminished breath sounds in both lungs. ABDOMEN: Soft and nontender. Distended. Positive bowel sounds. EXTREMITIES: No evidence of edema, clubbing, or cyanosis. FREDERIC CORDERO March 26, 2017 23:37
[2017-03-27] VITALS (7 sets, daily range): BP systolic 110–139; BP diastolic 64–82
[2017-03-27] MEDS: DuoNeb 0.5-3(2.5)mg/3ml neb HHN SCH ×4 (00:41→22:47)
[2017-03-27] MEDS: metroNIDAZOLE 500mg 100 ML IVPB SCH (06:30)
[2017-03-27] MEDS: MS Contin 15mg tab ORAL SCH (08:07)
[2017-03-27] MEDS: Heparin 5000 units/ml inj SUBQ SCH ×2 (08:07→21:00)
[2017-03-27] MEDS: QUEtiapine 200mg tab ORAL SCH (08:07)
--- NOTE | 2017-03-27 11:35 | Infectious Diseases Prog Note ---
Assessment/Plan Assessment/Plan ASSESSMENT AND PLAN: 1. lactic acidosis - ? sepsis, ? genvoya, ? biliary, doubt uti, blood cultures negative, chest x-ray with atx - rocephin and flagyl - clinically seem better - check lactic acid level - hold genvoya for now - check labs 2. The patient has history of human immunodeficiency virus. His T-cell count per the patient is over 500. We will check CD4 count level. Again, hold Genvoya for now because of elevated lactic acid and patient to f/u with primary HIV MD, Dr. Jones, for further anti-retroviral treatment. 3. The patient has a history of asthma. 4. Chronic obstructive pulmonary disease. 5. Upper respiratory infection and bronchitis. 6. Asthma. 7. Hypertension. 8. Blood pressure control per primary. 9. Depression. 10. Acute tubular necrosis. 11. Encephalopathy. 12. Hypokalemia. 13. Ethyl alcohol use. 14. Nicotine dependency and past history of smoking. 15. Allergy to penicillin, tolerated cephalosporins in the past including Rocephin. 16. Family history is noncontributory. 17. MAR was noted. 18. Case was discussed with RN. 19. Notes were reviewed. 20. Continue treatment per primary consultants. Subjective Constitutional: Denies: fever HEENT: Denies: congestion Respiratory: Denies: shortness of breath Cardiovascular: Denies: chest pain Gastrointestinal/Abdominal: Denies: diarrhea, nausea, vomiting Genitourinary: Denies: dysuria, frequency, hematuria Neurologic: Reports: other - weak, nad Psychiatric: Denies: depression Skin: Denies: rash Hematologic: Denies: bleeding Musculoskeletal: Denies: pain Allergies: Coded Allergies: PENICILLIN G (Verified Allergy, Unknown, 03/24/17) PENICILLINS (Unverified Allergy, Unknown, 03/24/17) Objective Vital Signs Last 24 Hour Vital Signs Date Time Temp Pulse Resp B/P Pulse Ox O2 Delivery O2 Flow Rate FiO2 03/27/17 09:00 94 03/27/17 08:00 96.4 94 19 139/68 Nasal Cannula 2.0 100 03/27/17 07:17 Nasal Cannula 4.0 36 03/27/17 07:17 97 Nasal Cannula 4.0 36 03/27/17 04:00 98.1 73 20 126/64 97 Nasal Cannula 2.0 03/27/17 04:00 68 03/27/17 00:50 68 18 98 Nasal Cannula 4.0 36 03/27/17 00:41 68 18 97 Nasal Cannula 4.0 36 03/27/17 00:00 72 03/27/17 00:00 97.9 73 20 113/76 99 Nasal Cannula 2.0 03/26/17 20:00 80 03/26/17 20:00 98.1 85 20 109/71 98 Nasal Cannula 2.0 03/26/17 19:59 85 16 98 Nasal Cannula 4.0 36 03/26/17 19:52 96 Nasal Cannula 4.0 36 03/26/17 19:52 Nasal Cannula 4.0 36 03/26/17 19:50 84 18 96 Nasal Cannula 4.0 03/26/17 16:00 97.4 80 17 106/86 99 Room Air 03/26/17 16:00 72 03/26/17 13:57 Nasal Cannula 03/26/17 13:55 Nasal Cannula 03/26/17 12:00 97.0 71 18 118/45 100 Room Air 03/26/17 12:00 90 Height (Feet): 5 Height (Inches): 6.00 Weight (Pounds): 159 General Appearance: no acute distress HEENT: normocephalic, atraumatic, anicteric, mucous membranes moist, PERRL, EOMI, pharynx normal, supple, no JVD Respiratory/Chest: lungs clear, normal breath sounds, no accessory muscle use, respiratory distress Cardiovascular: normal rate, regular rhythm, no gallop/murmur, no JVD Abdomen: normal bowel sounds, soft, non tender, no organomegaly, non distended Genitourinary: other - no jameson Extremities: no cyanosis Skin: no rash, no lesions 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, alert, oriented x 3, responsive Lymphatic: no neck adenopathy Musculoskeletal: no effusion Objective chest x-ray - atx likely, no infiltrate (reviewed, report noted) us abdomen - pending Microbiology Date/Time Source Procedure Growth Status 03/24/17 16:20 Blood Blood Culture - Preliminary NO GROWTH AFTER 48 HOURS Resulted 03/24/17 16:20 Blood Blood Culture - Preliminary NO GROWTH AFTER 48 HOURS Resulted 03/24/17 16:20 Urine,Clean Catch Urine Culture - Final Mixed Gram Positive Organism Complete Labs Test 03/24/17 15:11 03/24/17 16:00 03/24/17 16:20 03/25/17 03:40 White Blood Count 7.6 K/UL (4.8-10.8) Red Blood Count 4.40 M/UL (4.70-6.10) Hemoglobin 15.2 G/DL (14.2-18.0) Hematocrit 47.2 % (42.0-52.0) Mean Corpuscular Volume 107 FL (80-99) Mean Corpuscular Hemoglobin 34.5 PG (27.0-31.0) Mean Corpuscular Hemoglobin Concent 32.1 G/DL (32.0-36.0) Red Cell Distribution Width 13.8 % (11.6-14.8) Platelet Count 159 K/UL (150-450) Mean Platelet Volume 6.9 FL (6.5-10.1) Neutrophils (%) (Auto) 73.2 % (45.0-75.0) Lymphocytes (%) (Auto) 12.0 % (20.0-45.0) Monocytes (%) (Auto) 11.5 % (1.0-10.0) Eosinophils (%) (Auto) 0.3 % (0.0-3.0) Basophils (%) (Auto) 3.0 % (0.0-2.0) Sodium Level 139 mEQ/L (135-145) 140 mEQ/L (135-145) Potassium Level 3.3 mEQ/L (3.4-4.9) 3.5 mEQ/L (3.4-4.9) Chloride Level 92 mEQ/L (98-107) 97 mEQ/L (98-107) Carbon Dioxide Level 22 mEQ/L (20-30) 27 mEQ/L (20-30) Anion Gap 25 (5-15) 16 (5-15) Blood Urea Nitrogen 23 mg/dL (7-23) 21 mg/dL (7-23) Creatinine 2.0 mg/dL (0.7-1.2) 1.2 mg/dL (0.7-1.2) Estimat Glomerular Filtration Rate mL/min (>60) mL/min (>60) Glucose Level 96 mg/dL (74-106) 93 mg/dL (74-106) Lactic Acid Level 7.40 mmol/L (0.66-2.22) 4.70 mmol/L (0.66-2.22) Calcium Level 9.1 mg/dL (8.6-10.2) 9.0 mg/dL (8.6-10.2) Total Bilirubin 1.8 mg/dL (0.0-1.2) 1.5 mg/dL (0.0-1.2) Direct Bilirubin 0.9 mg/dL (0.1-0.3) 0.6 mg/dL (0.1-0.3) Aspartate Amino Transf (AST/SGOT) 248 U/L (5-40) 183 U/L (5-40) Alanine Aminotransferase (ALT/SGPT) 61 U/L (3-41) 52 U/L (3-41) Alkaline Phosphatase 85 U/L (40-129) 74 U/L (40-129) Total Creatine Kinase 7650 U/L (38-174) 5566 U/L (38-174) Creatine Kinase MB 28.2 ng/mL (< 6.7) Creatine Kinase MB Relative Index 0.3 Troponin I < 0.30 ng/mL (<=0.30) Pro-B-Type Natriuretic Peptide 35107 pg/mL (0-450) Total Protein 6.8 g/dL (6.6-8.7) 6.3 g/dL (6.6-8.7) Albumin 3.8 g/dL (3.5-5.2) 3.4 g/dL (3.5-5.2) Globulin 3.0 g/dL 2.9 g/dL Albumin/Globulin Ratio 1.2 (1.0-2.7) 1.1 (1.0-2.7) Serum Alcohol 29 mg/dL Urine Color María Urine Appearance Slightly cloudy Urine pH 5 (4.5-8.0) Urine Specific [place] 1.020 (1.005-1.035) Urine Protein 2+ (NEGATIVE) Urine Glucose (UA) Negative (NEGATIVE) Urine Ketones 2+ (NEGATIVE) Urine Occult Blood 4+ (NEGATIVE) Urine Nitrite Negative (NEGATIVE) Urine Bilirubin 2+ (NEGATIVE) Urine Ictotest Positive Urine Urobilinogen 8 MG/DL (0.0-1.0) Urine Leukocyte Esterase 1+ (NEGATIVE) Urine RBC 0-2 /HPF (0 - 0) Urine WBC 0-2 /HPF (0 - 0) Urine Squamous Epithelial Cells Few /LPF (NONE/OCC) Urine Bacteria Moderate /HPF (NONE) Urine Hyaline Casts Tntc /LPF (NONE) Plasma/Serum Osmolality 283 mOsmol/kg (280-301) Uric Acid 10.7 mg/dL (3.0-7.5) Phosphorus Level 3.2 mg/dL (2.5-4.8) Magnesium Level 1.8 mg/dL (1.7-2.5) Thyroid Stimulating Hormone (TSH) 0.549 uIU/mL (0.300-4.500) Free Thyroxine 1.23 ng/dL (0.86-1.85) Free Triiodothyronine 2.3 pg/mL (2.0-4.4) Cortisol 6.8 ug/dL (.) Test 03/25/17 05:00 03/26/17 06:10 Urine Color Brown Urine Appearance Clear Urine pH 5 (4.5-8.0) Urine Specific [place] 1.020 (1.005-1.035) Urine Protein 1+ (NEGATIVE) Urine Glucose (UA) Negative (NEGATIVE) Urine Ketones 3+ (NEGATIVE) Urine Occult Blood 1+ (NEGATIVE) Urine Nitrite Negative (NEGATIVE) Urine Bilirubin 1+ (NEGATIVE) Urine Ictotest Positive Urine Urobilinogen 8 MG/DL (0.0-1.0) Urine Leukocyte Esterase 1+ (NEGATIVE) Urine RBC 0-2 /HPF (0 - 0) Urine WBC 0-2 /HPF (0 - 0) Urine Squamous Epithelial Cells Occasional /LPF Urine Bacteria Few /HPF (NONE) Urine Eosinophils None seen Urine Random Sodium 28 mmol/L Urine Random Chloride 32 mmol/L Urine Potassium Timed 29 mmol/L White Blood Count 4.4 K/UL (4.8-10.8) Red Blood Count 3.87 M/UL (4.70-6.10) Hemoglobin 13.7 G/DL (14.2-18.0) Hematocrit 40.7 % (42.0-52.0) Mean Corpuscular Volume 105 FL (80-99) Mean Corpuscular Hemoglobin 35.3 PG (27.0-31.0) Mean Corpuscular Hemoglobin Concent 33.6 G/DL (32.0-36.0) Red Cell Distribution Width 13.4 % (11.6-14.8) Platelet Count 143 K/UL (150-450) Mean Platelet Volume 7.0 FL (6.5-10.1) Neutrophils (%) (Auto) 54.8 % (45.0-75.0) Lymphocytes (%) (Auto) 26.6 % (20.0-45.0) Monocytes (%) (Auto) 16.2 % (1.0-10.0) Eosinophils (%) (Auto) 1.1 % (0.0-3.0) Basophils (%) (Auto) 1.3 % (0.0-2.0) Sodium Level 144 mEQ/L (135-145) Potassium Level 3.4 mEQ/L (3.4-4.9) Chloride Level 102 mEQ/L (98-107) Carbon Dioxide Level 29 mEQ/L (20-30) Anion Gap 13 (5-15) Blood Urea Nitrogen 13 mg/dL (7-23) Creatinine 0.9 mg/dL (0.7-1.2) Estimat Glomerular Filtration Rate mL/min (>60) Glucose Level 104 mg/dL (74-106) Calcium Level 9.0 mg/dL (8.6-10.2) Total Bilirubin 1.2 mg/dL (0.0-1.2) Direct Bilirubin 0.5 mg/dL (0.1-0.3) Aspartate Amino Transf (AST/SGOT) 115 U/L (5-40) Alanine Aminotransferase (ALT/SGPT) 42 U/L (3-41) Alkaline Phosphatase 63 U/L (40-129) Total Protein 5.9 g/dL (6.6-8.7) Albumin 3.2 g/dL (3.5-5.2) Globulin 2.7 g/dL Albumin/Globulin Ratio 1.1 (1.0-2.7) Current Medications Medications (Trade) Dose Ordered Sig/Raoul Route PRN Reason Start Time Stop Time Status Last Admin Dose Admin Acetaminophen (Tylenol) 650 mg Q4H PRN ORAL fever 03/25/17 18:15 04/24/17 18:14 Al Hydroxide/Mg Hydroxide (Mylanta II) 30 ml Q6H PRN ORAL dyspepsia 03/25/17 18:15 04/24/17 18:14 Albuterol/ Ipratropium (DuoNeb 0.5-3(2.5)mg/3ml) 3 ml Q4H PRN HHN Shortness of Breath 03/25/17 18:15 03/30/17 18:14 Albuterol/ Ipratropium (DuoNeb 0.5-3(2.5)mg/3ml) 3 ml Q6HRT HHN 03/25/17 19:00 03/30/17 18:59 03/27/17 00:41 Ceftriaxone Sodium 1 gm/ Dextrose 50 ml @ 100 mls/hr Q24H IVPB 03/26/17 17:00 04/02/17 16:59 03/26/17 18:11 Chlordiazepoxide (Librium) 25 mg Q6H PRN ORAL Agitation 03/25/17 19:30 04/01/17 19:29 Clonidine HCl (Catapres) 0.1 mg Q4H PRN ORAL SBP > 160 03/25/17 18:15 04/24/17 18:14 Dextrose (Dextrose 50%) STAT PRN IV Hypoglycemia 03/25/17 18:15 04/24/17 18:14 Folic Acid 1 mg/ Magnesium Sulfate 2000 mg/ Multivitamins 10 ml/Sodium Chloride 1,014.2 ml @ 125 mls/ hr Q24H IV 03/26/17 15:00 04/25/17 14:59 03/26/17 16:08 Heparin Sodium (Porcine) (Heparin 5000 units/ml) 5,000 units EVERY 12 HOURS SUBQ 03/25/17 21:00 04/24/17 20:59 03/25/17 21:03 Lorazepam (Ativan 2mg/ml 1ml) 0.5 mg Q4H PRN IV For Anxiety 03/25/17 18:15 04/01/17 18:14 Metronidazole (Flagyl) 500 mg Q8HR ORAL 03/27/17 14:00 04/03/17 13:59 Morphine Sulfate (MS Contin) 15 mg DAILY ORAL 03/26/17 09:00 04/02/17 08:59 03/27/17 08:07 Morphine Sulfate (Morphine Sulfate) 1 mg Q4H PRN IVP For Pain 7-10 03/25/17 18:15 04/01/17 18:14 Nitroglycerin (Ntg) 0.4 mg Q5M X 3 DOSES PRN SL Prn Chest Pain 03/25/17 18:00 04/24/17 17:59 Ondansetron HCl (Zofran) 4 mg Q6H PRN IVP Nausea & Vomiting 03/25/17 18:15 04/24/17 18:14 Polyethylene Glycol (Miralax) 17 gm HSPRN PRN ORAL Constipation 03/25/17 18:15 04/24/17 18:14 Promethazine HCl/ Codeine (Phenergan with Codeine) 5 ml Q4H PRN ORAL For Cough 03/25/17 21:15 04/24/17 21:14 Quetiapine Fumarate (SEROquel) 200 mg DAILY ORAL 03/26/17 09:00 04/25/17 08:59 03/27/17 08:07 Temazepam (Restoril) 15 mg HSPRN PRN ORAL Insomnia 03/25/17 18:15 04/01/17 18:14 Thiamine HCl/ Dextrose (Vitamin B1/D5W) 56 ml @ 112 mls/hr Q24H IVPB 03/26/17 15:00 04/25/17 14:59 03/26/17 16:08 Trazodone HCl (Desyrel) 50 mg BEDTIME ORAL 03/25/17 21:00 04/24/17 20:59 03/26/17 20:46 CARISSA HAYWOOD March 27, 2017 11:35
[2017-03-27] MEDS ORDERED: metroNIDAZOLE 500mg tab ORAL SCH (14:00)
[2017-03-27] MEDS: Folic Acid 1 MG, Magnesium Sulfate 2,000 MG, Multivitamin - 12 Injection 10 ML in NS w/... IV SCH (14:58)
--- NOTE | 2017-03-27 15:07 | Pulmonology Progress Note ---
Assessment/Plan Problems: (1) Acute encephalopathy (2) ATN (acute tubular necrosis) (3) COPD (chronic obstructive pulmonary disease) (4) Hypokalemia (5) HIV disease (6) Pulmonary hypertension Assessment/Plan feeling better, less short of breath check cultures pt/ot dc planning med/surg Subjective ROS Limited/Unobtainable: No Interval Events: no new complains Allergies: Coded Allergies: PENICILLIN G (Verified Allergy, Unknown, 03/24/17) PENICILLINS (Unverified Allergy, Unknown, 03/24/17) Objective Last 24 Hour Vital Signs Date Time Temp Pulse Resp B/P Pulse Ox O2 Delivery O2 Flow Rate FiO2 03/27/17 12:00 80 03/27/17 12:00 79 18 111/82 Nasal Cannula 2.0 96 03/27/17 11:39 Nasal Cannula 03/27/17 11:39 Nasal Cannula 03/27/17 09:00 94 03/27/17 08:00 96.4 94 19 139/68 Nasal Cannula 2.0 100 03/27/17 07:17 Nasal Cannula 4.0 36 03/27/17 07:17 97 Nasal Cannula 4.0 36 03/27/17 04:00 98.1 73 20 126/64 97 Nasal Cannula 2.0 03/27/17 04:00 68 03/27/17 00:50 68 18 98 Nasal Cannula 4.0 36 03/27/17 00:41 68 18 97 Nasal Cannula 4.0 36 03/27/17 00:00 72 03/27/17 00:00 97.9 73 20 113/76 99 Nasal Cannula 2.0 03/26/17 20:00 80 03/26/17 20:00 98.1 85 20 109/71 98 Nasal Cannula 2.0 03/26/17 19:59 85 16 98 Nasal Cannula 4.0 36 03/26/17 19:52 96 Nasal Cannula 4.0 36 03/26/17 19:52 Nasal Cannula 4.0 36 03/26/17 19:50 84 18 96 Nasal Cannula 4.0 03/26/17 16:00 97.4 80 17 106/86 99 Room Air 03/26/17 16:00 72 Intake and Output 03/26/17 03/27/17 19:00 07:00 Intake Total 560 ml 1100 ml Output Total 250 ml Balance 560 ml 850 ml Intake Oral 560 ml IV Total 1100 ml Output Urine Total 250 ml # Voids 3 2 # Bowel Movements 1 General Appearance: WD/WN HEENT: normocephalic Respiratory/Chest: chest wall non-tender, lungs clear Cardiovascular: normal peripheral pulses, normal rate Abdomen: normal bowel sounds, soft, non tender Genitourinary: normal external genitalia Extremities: no cyanosis Skin: no rash Microbiology Date/Time Source Procedure Growth Status 03/24/17 16:20 Blood Blood Culture - Preliminary NO GROWTH AFTER 48 HOURS Resulted 03/24/17 16:20 Blood Blood Culture - Preliminary NO GROWTH AFTER 48 HOURS Resulted 03/24/17 16:20 Urine,Clean Catch Urine Culture - Final Mixed Gram Positive Organism Complete Laboratory Tests 03/27/17 12:37: Lactic Acid Level 0.70 Current Medications Medications (Trade) Dose Ordered Sig/Raoul Route PRN Reason Start Time Stop Time Status Last Admin Dose Admin Acetaminophen (Tylenol) 650 mg Q4H PRN ORAL fever 03/25/17 18:15 04/24/17 18:14 Al Hydroxide/Mg Hydroxide (Mylanta II) 30 ml Q6H PRN ORAL dyspepsia 03/25/17 18:15 04/24/17 18:14 Albuterol/ Ipratropium (DuoNeb 0.5-3(2.5)mg/3ml) 3 ml Q4H PRN HHN Shortness of Breath 03/25/17 18:15 03/30/17 18:14 Albuterol/ Ipratropium (DuoNeb 0.5-3(2.5)mg/3ml) 3 ml Q6HRT HHN 03/25/17 19:00 03/30/17 18:59 03/27/17 00:41 Ceftriaxone Sodium 1 gm/ Dextrose 50 ml @ 100 mls/hr Q24H IVPB 03/26/17 17:00 04/02/17 16:59 03/26/17 18:11 Chlordiazepoxide (Librium) 25 mg Q6H PRN ORAL Agitation 03/25/17 19:30 04/01/17 19:29 Clonidine HCl (Catapres) 0.1 mg Q4H PRN ORAL SBP > 160 03/25/17 18:15 04/24/17 18:14 Dextrose (Dextrose 50%) STAT PRN IV Hypoglycemia 03/25/17 18:15 04/24/17 18:14 Folic Acid 1 mg/ Magnesium Sulfate 2000 mg/ Multivitamins 10 ml/Sodium Chloride 1,014.2 ml @ 125 mls/ hr Q24H IV 03/26/17 15:00 04/25/17 14:59 03/26/17 16:08 Heparin Sodium (Porcine) (Heparin 5000 units/ml) 5,000 units EVERY 12 HOURS SUBQ 03/25/17 21:00 04/24/17 20:59 03/25/17 21:03 Lorazepam (Ativan 2mg/ml 1ml) 0.5 mg Q4H PRN IV For Anxiety 03/25/17 18:15 04/01/17 18:14 Metronidazole (Flagyl) 500 mg Q8HR ORAL 03/27/17 14:00 04/03/17 13:59 03/27/17 14:14 Morphine Sulfate (MS Contin) 15 mg DAILY ORAL 03/26/17 09:00 04/02/17 08:59 03/27/17 08:07 Morphine Sulfate (Morphine Sulfate) 1 mg Q4H PRN IVP For Pain 7-03/25/17 18:15 04/01/17 18:14 Nitroglycerin (Ntg) 0.4 mg Q5M X 3 DOSES PRN SL Prn Chest Pain 03/25/17 18:00 04/24/17 17:59 Ondansetron HCl (Zofran) 4 mg Q6H PRN IVP Nausea & Vomiting 03/25/17 18:15 04/24/17 18:14 Polyethylene Glycol (Miralax) 17 gm HSPRN PRN ORAL Constipation 03/25/17 18:15 04/24/17 18:14 Promethazine HCl/ Codeine (Phenergan with Codeine) 5 ml Q4H PRN ORAL For Cough 03/25/17 21:15 04/24/17 21:14 Quetiapine Fumarate (SEROquel) 200 mg DAILY ORAL 03/26/17 09:00 04/25/17 08:59 03/27/17 08:07 Temazepam (Restoril) 15 mg HSPRN PRN ORAL Insomnia 03/25/17 18:15 04/01/17 18:14 Thiamine HCl/ Dextrose (Vitamin B1/D5W) 56 ml @ 112 mls/hr Q24H IVPB 03/26/17 15:00 04/25/17 14:59 03/26/17 16:08 Trazodone HCl (Desyrel) 50 mg BEDTIME ORAL 03/25/17 21:00 04/24/17 20:59 03/26/17 20:46 YAJAIRA PRADO March 27, 2017 15:07
[2017-03-27] MEDS: Thiamine HCl 100 MG in D5W 55 ML IVPB SCH (15:42)
[2017-03-27] MEDS ORDERED: Nitroglycerin Subl 0.4mg tab (Bottle Of 25) SL PRN (16:30)
[2017-03-27] MEDS: cefTRIAXone 1 GM in D5W 50 ML IVPB SCH (16:54)
[2017-03-27] MEDS ORDERED: Mylanta II UD 30ml ORAL PRN (17:00)
[2017-03-27] MEDS ORDERED: chlordiazePOXIDE 25mg Cap ORAL PRN (17:00)
[2017-03-27] MEDS ORDERED: Morphine Sulfate 2mg/ml Inj IVP PRN (17:00)
[2017-03-27] MEDS ORDERED: Miralax 17gm pkt ORAL PRN (17:00)
[2017-03-27] MEDS ORDERED: LORazepam Inj 2mg/ml 1ml IV PRN (17:00)
[2017-03-27] MEDS ORDERED: Promethazine/Codeine 5ml UD ORAL PRN (17:15)
[2017-03-27] MEDS ORDERED: DuoNeb 0.5-3(2.5)mg/3ml neb HHN PRN (18:15)
--- NOTE | 2017-03-27 20:15 | Cardiology Report ---
APPROVED REPORT EKG Measurement Heart [id number] Normal sinus rhythm Low voltage QRS Septal infarct, age undetermined Prolonged QT Abnormal ECG
[2017-03-27] MEDS: metroNIDAZOLE 500mg tab ORAL SCH (21:12)
[2017-03-27] MEDS: TraZODone 50mg tab ORAL SCH (21:13)
--- NOTE | 2017-03-27 23:03 | Nephrology Progress Note ---
Assessment/Plan Assessment 1. Acute renal failure. 2. Chronic kidney disease. 3. Syncopal episode. 4. elevated liver enzyme 5. Mild elevation in liver enzyme. 6. History of chronic obstructive pulmonary disease with questionable congestive heart failure. 7. abdominal pain Plan plan to continue current meds iv antibiotic for UTI restart lasix d/c planing pt/ot breathing treatment Subjective Constitutional: Reports: malaise, weakness HEENT: Reports: no symptoms Genitourinary: Reports: no symptoms Neurologic/Psychiatric: Reports: no symptoms Subjective alert and awake less sob felling better Objective Objective Last 24 Hour Vital Signs Date Time Temp Pulse Resp B/P Pulse Ox O2 Delivery O2 Flow Rate FiO2 03/27/17 19:58 77 18 99 Nasal Cannula 4.0 36 03/27/17 19:56 76 16 97 Nasal Cannula 4.0 36 03/27/17 19:54 97 Nasal Cannula 4.0 36 03/27/17 19:54 Nasal Cannula 4.0 36 03/27/17 17:22 96.4 03/27/17 16:00 78 18 110/73 Nasal Cannula 2.0 96 03/27/17 12:00 80 03/27/17 12:00 79 18 111/82 Nasal Cannula 2.0 96 03/27/17 11:39 Nasal Cannula 03/27/17 11:39 Nasal Cannula 03/27/17 09:00 94 03/27/17 08:00 96.4 94 19 139/68 Nasal Cannula 2.0 100 03/27/17 07:17 Nasal Cannula 4.0 36 03/27/17 07:17 97 Nasal Cannula 4.0 36 03/27/17 04:00 98.1 73 20 126/64 97 Nasal Cannula 2.0 03/27/17 04:00 68 03/27/17 00:50 68 18 98 Nasal Cannula 4.0 36 03/27/17 00:41 68 18 97 Nasal Cannula 4.0 36 03/27/17 00:00 72 03/27/17 00:00 97.9 73 20 113/76 99 Nasal Cannula 2.0 Intake and Output 03/26/17 03/27/17 19:00 07:00 Intake Total 560 ml 1100 ml Output Total 250 ml Balance 560 ml 850 ml Intake Oral 560 ml IV Total 1100 ml Output Urine Total 250 ml # Voids 3 2 # Bowel Movements 1 Laboratory Tests 03/27/17 12:37: Lactic Acid Level 0.70 Height (Feet): 5 Height (Inches): 6.00 Weight (Pounds): 159 Objective GENERAL: The patient is a very pleasant 77-year-old gentleman, in no apparent respiratory distress, alert, and oriented x2. HEENT: Atraumatic and normocephalic. Anicteric. Pupils are equal, round, and reactive to light and accommodation. Extraocular muscles are intact. NECK: JVP is less than 5 cm. No carotid bruits. Carotid upstroke is 2+ bilaterally. CVS: Normal S1 and S2. Distant. No murmurs, gallops, or rubs. PMI is at fourth intercostal space at the midclavicular line. LUNGS: Diminished breath sounds in both lungs. ABDOMEN: Soft and nontender. Distended. Positive bowel sounds. EXTREMITIES: No evidence of edema, clubbing, or cyanosis. CHARLIE FLANAGAN March 27, 2017 23:03
[2017-03-28] MEDS: DuoNeb 0.5-3(2.5)mg/3ml neb HHN SCH ×3 (00:45→19:24)
[2017-03-28 04:00] VITALS: BP 142/97
[2017-03-28] MEDS: metroNIDAZOLE 500mg tab ORAL SCH ×3 (05:03→21:30)
[2017-03-28 06:13] LABS: BASOPHILS % (AUTO) 1.9 % (0.0-2.0); EOSINOPHILS % (AUTO) 1.8 % (0.0-3.0); LYMPHOCYTES % (AUTO) 25.9 % (20.0-45.0); MEAN CORPUSCULAR HEMOGLOBIN 35.8 PG (27.0-31.0); MEAN CORPUSCULAR HGB CONC 33.9 G/DL (32.0-36.0); MEAN CORPUSCULAR VOLUME 106 FL (80-99); MEAN PLATELET VOLUME 7.9 FL (6.5-10.1); MONOCYTES % (AUTO) 15.1 % (1.0-10.0); NEUTROPHILS % (AUTO) 55.3 % (45.0-75.0); PLATELET COUNT 159 K/UL (150-450); RED BLOOD COUNT 3.77 M/UL (4.70-6.10); WHITE BLOOD COUNT 4.2 K/UL (4.8-10.8)
[2017-03-28 06:28] LABS: ANION GAP 12 (5-15); CALCIUM 8.3 mg/dL (8.6-10.2); CARBON DIOXIDE 24 mEQ/L (20-30); CHLORIDE 101 mEQ/L (98-107); CREATININE 0.6 mg/dL (0.7-1.2); HEMOLYSIS 6; SODIUM 137 mEQ/L (135-145)
[2017-03-28 08:00] VITALS: BP 110/60
[2017-03-28] MEDS: MS Contin 15mg tab ORAL SCH (08:44)
[2017-03-28] MEDS: QUEtiapine 200mg tab ORAL SCH (08:44)
--- NOTE | 2017-03-28 08:48 | Diagnostic Imaging Report ---
Indication: Chest Pain Comparison: 03/12/15 A single view chest radiograph was obtained. Findings: Interstitial opacities are prominent at the lung bases. Some of this may be due to atelectasis. Some degree of mild interstitial edema not excluded. Pulmonary central vessels are prominent. Heart is mildly enlarged. Bones are osteopenic. Impression: Basilar atelectasis. Mild interstitial edema may be present. Please correlate clinically
[2017-03-28] MEDS: Heparin 5000 units/ml inj SUBQ SCH ×2 (08:49→20:55)
[2017-03-28 12:08] VITALS: BP 120/67
[2017-03-28] MEDS ORDERED: Thiamine HCl 100 MG in D5W 55 ML IVPB SCH (15:00)
[2017-03-28] MEDS ORDERED: Folic Acid 1 MG, Magnesium Sulfate 2,000 MG, Multivitamin - 12 Injection 10 ML in NS w/... IV SCH (15:00)
[2017-03-28 15:50] VITALS: BP 116/78
--- NOTE | 2017-03-28 16:05 | Nephrology Progress Note ---
Assessment/Plan Assessment 1. Acute renal failure. RESOLVED 2. Chronic kidney disease. 3. Syncopal episode. 4. elevated liver enzyme 5. Mild elevation in liver enzyme. 6. History of chronic obstructive pulmonary disease with questionable congestive heart failure. 7. abdominal pain Plan plan to continue current meds iv antibiotic for UTI restart lasix d/c planing pt/ot breathing treatment Subjective Constitutional: Reports: no symptoms HEENT: Reports: no symptoms Genitourinary: Reports: no symptoms Neurologic/Psychiatric: Reports: no symptoms Subjective alert and awake less sob felling better had BM Objective Objective Last 24 Hour Vital Signs Date Time Temp Pulse Resp B/P Pulse Ox O2 Delivery O2 Flow Rate FiO2 03/28/17 15:50 97.2 78 19 116/78 97 Nasal Cannula 4.0 03/28/17 13:29 82 19 96 Nasal Cannula 4.0 36 03/28/17 13:19 78 20 96 Nasal Cannula 3.0 32 03/28/17 12:08 97.0 81 19 120/67 97 Nasal Cannula 2.0 03/28/17 09:43 97.7 03/28/17 08:00 97.7 70 18 110/60 97 Nasal Cannula 2.0 03/28/17 07:46 98 Nasal Cannula 4.0 36 03/28/17 07:46 Nasal Cannula 4.0 36 03/28/17 04:00 97.5 75 18 142/97 97 Nasal Cannula 2.0 03/28/17 00:52 78 18 99 Nasal Cannula 4.0 36 03/28/17 00:46 73 18 97 Nasal Cannula 3.0 32 03/27/17 23:30 97.7 77 18 126/70 97 Nasal Cannula 2.0 03/27/17 20:00 97.6 75 18 116/66 97 Nasal Cannula 2.0 03/27/17 19:58 77 18 99 Nasal Cannula 4.0 36 03/27/17 19:56 76 16 97 Nasal Cannula 4.0 36 03/27/17 19:54 97 Nasal Cannula 4.0 36 03/27/17 19:54 Nasal Cannula 4.0 36 03/27/17 17:22 96.4 Intake and Output 03/27/17 03/28/17 19:00 07:00 Intake Total 225 ml 750 ml Output Total 300 ml 700 ml Balance -75 ml 50 ml Intake Oral 500 ml IV Total 225 ml 250 ml Output Urine Total 300 ml 700 ml # Voids 3 # Bowel Movements 1 Laboratory Tests 03/28/17 04:55: White Blood Count 4.2L, Red Blood Count 3.77L, Hemoglobin 13.5L, Hematocrit 39.8L, Mean Corpuscular Volume 106H, Mean Corpuscular Hemoglobin 35.8H, Mean Corpuscular Hemoglobin Concent 33.9, Red Cell Distribution Width 13.0, Platelet Count 159, Mean Platelet Volume 7.9, Neutrophils (%) (Auto) 55.3, Lymphocytes (% ) (Auto) 25.9, Monocytes (%) (Auto) 15.1H, Eosinophils (%) (Auto) 1.8, Basophils (%) (Auto) 1.9, Sodium Level 137, Potassium Level 4.0, Chloride Level 101, Carbon Dioxide Level 24, Anion Gap 12, Blood Urea Nitrogen 7, Creatinine 0.6L, Estimat Glomerular Filtration Rate , Glucose Level 93, Calcium Level 8.3L Height (Feet): 5 Height (Inches): 6.00 Weight (Pounds): 159 Objective GENERAL: The patient is a very pleasant 77-year-old gentleman, in no apparent respiratory distress, alert, and oriented x2. HEENT: Atraumatic and normocephalic. Anicteric. Pupils are equal, round, and reactive to light and accommodation. Extraocular muscles are intact. NECK: JVP is less than 5 cm. No carotid bruits. Carotid upstroke is 2+ bilaterally. CVS: Normal S1 and S2. Distant. No murmurs, gallops, or rubs. PMI is at fourth intercostal space at the midclavicular line. LUNGS: Diminished breath sounds in both lungs. ABDOMEN: Soft and nontender. Distended. Positive bowel sounds. EXTREMITIES: No evidence of edema, clubbing, or cyanosis. CHARLIE FLANAGAN March 28, 2017 16:05
[2017-03-28] MEDS: cefTRIAXone 1 GM in D5W 50 ML IVPB SCH (16:37)
--- NOTE | 2017-03-28 18:08 | Cardiology Progress Note ---
Assessment/Plan Assessment/Plan 1. Hypotension, resolved, continue hydration, normal LVEF. 2. Cor pulmonale, with right ventricular dilatation and associated right ventricular systolic dysfunction, possibly due to chronic obstructive pulmonary disease. 3. Sinus tachycardia, resolved, due to hypotension and/or hypoxemia. 4. Elevated beta-natriuretic peptide, most likely secondary to right ventricular dilatation. Subjective Subjective Not on the telemetry bed. No cardiac events. Objective Last 24 Hour Vital Signs Date Time Temp Pulse Resp B/P Pulse Ox O2 Delivery O2 Flow Rate FiO2 03/28/17 15:50 97.2 78 19 116/78 97 Nasal Cannula 4.0 03/28/17 13:29 82 19 96 Nasal Cannula 4.0 36 03/28/17 13:19 78 20 96 Nasal Cannula 3.0 32 03/28/17 12:08 97.0 81 19 120/67 97 Nasal Cannula 2.0 03/28/17 09:43 97.7 03/28/17 08:00 97.7 70 18 110/60 97 Nasal Cannula 2.0 03/28/17 07:46 98 Nasal Cannula 4.0 36 03/28/17 07:46 Nasal Cannula 4.0 36 03/28/17 04:00 97.5 75 18 142/97 97 Nasal Cannula 2.0 03/28/17 00:52 78 18 99 Nasal Cannula 4.0 36 03/28/17 00:46 73 18 97 Nasal Cannula 3.0 32 03/27/17 23:30 97.7 77 18 126/70 97 Nasal Cannula 2.0 03/27/17 20:00 97.6 75 18 116/66 97 Nasal Cannula 2.0 03/27/17 19:58 77 18 99 Nasal Cannula 4.0 36 03/27/17 19:56 76 16 97 Nasal Cannula 4.0 36 03/27/17 19:54 97 Nasal Cannula 4.0 36 03/27/17 19:54 Nasal Cannula 4.0 36 Intake and Output 03/27/17 03/28/17 19:00 07:00 Intake Total 225 ml 750 ml Output Total 300 ml 700 ml Balance -75 ml 50 ml Intake Oral 500 ml IV Total 225 ml 250 ml Output Urine Total 300 ml 700 ml # Voids 3 # Bowel Movements 1 2D Echo: LVEF 60%, Mild AR, Grade I LVDD, RVSP 38 mmHg Laboratory Tests Test 03/28/17 04:55 White Blood Count 4.2 K/UL (4.8-10.8) L Red Blood Count 3.77 M/UL (4.70-6.10) L Hemoglobin 13.5 G/DL (14.2-18.0) L Hematocrit 39.8 % (42.0-52.0) L Mean Corpuscular Volume 106 FL (80-99) H Mean Corpuscular Hemoglobin 35.8 PG (27.0-31.0) H Mean Corpuscular Hemoglobin Concent 33.9 G/DL (32.0-36.0) Red Cell Distribution Width 13.0 % (11.6-14.8) Platelet Count 159 K/UL (150-450) Mean Platelet Volume 7.9 FL (6.5-10.1) Neutrophils (%) (Auto) 55.3 % (45.0-75.0) Lymphocytes (%) (Auto) 25.9 % (20.0-45.0) Monocytes (%) (Auto) 15.1 % (1.0-10.0) H Eosinophils (%) (Auto) 1.8 % (0.0-3.0) Basophils (%) (Auto) 1.9 % (0.0-2.0) Sodium Level 137 mEQ/L (135-145) Potassium Level 4.0 mEQ/L (3.4-4.9) Chloride Level 101 mEQ/L (98-107) Carbon Dioxide Level 24 mEQ/L (20-30) Anion Gap 12 (5-15) Blood Urea Nitrogen 7 mg/dL (7-23) Creatinine 0.6 mg/dL (0.7-1.2) L Estimat Glomerular Filtration Rate mL/min (>60) Glucose Level 93 mg/dL (74-106) Calcium Level 8.3 mg/dL (8.6-10.2) L Objective HEENT: Atraumatic and normocephalic. Anicteric. Pupils are equal, round, and reactive to light and accommodation. Extraocular muscles are intact. NECK: JVP is less than 5 cm. No carotid bruits. Carotid upstroke is 2+ bilaterally. CVS: Normal S1 and S2. Distant. No murmurs, gallops, or rubs. PMI is at fourth intercostal space at the midclavicular line. LUNGS: Diminished breath sounds in both lungs. ABDOMEN: Soft and nontender. Distended. Positive bowel sounds. EXTREMITIES: No evidence of edema, clubbing, or cyanosis. FREDERIC CORDERO March 28, 2017 18:08
[2017-03-28 20:00] VITALS: BP 119/73
[2017-03-28] MEDS: TraZODone 50mg tab ORAL SCH (20:54)
--- NOTE | 2017-03-28 22:41 | Pulmonology Progress Note ---
Assessment/Plan Problems: (1) Acute encephalopathy (2) ATN (acute tubular necrosis) (3) COPD (chronic obstructive pulmonary disease) (4) Hypokalemia (5) HIV disease (6) Pulmonary hypertension Assessment/Plan feeling better, less short of breath check cultures pt/ot, pt refused all cultures negative CD4 pending dc planning med/surg Subjective ROS Limited/Unobtainable: No Constitutional: Reports: no symptoms HEENT: Repors: no symptoms Respiratory: Reports: no symptoms Cardiovascular: Reports: no symptoms Allergies: Coded Allergies: PENICILLIN G (Verified Allergy, Unknown, 03/24/17) PENICILLINS (Unverified Allergy, Unknown, 03/24/17) Objective Last 24 Hour Vital Signs Date Time Temp Pulse Resp B/P Pulse Ox O2 Delivery O2 Flow Rate FiO2 03/28/17 20:00 97.5 79 20 119/73 100 03/28/17 19:25 82 18 99 Nasal Cannula 4.0 03/28/17 19:25 82 18 98 Nasal Cannula 4.0 36 03/28/17 19:24 98 Nasal Cannula 4.0 36 03/28/17 19:24 Nasal Cannula 4.0 36 03/28/17 15:50 97.2 78 19 116/78 97 Nasal Cannula 4.0 03/28/17 13:29 82 19 96 Nasal Cannula 4.0 36 03/28/17 13:19 78 20 96 Nasal Cannula 3.0 32 03/28/17 12:08 97.0 81 19 120/67 97 Nasal Cannula 2.0 03/28/17 09:43 97.7 03/28/17 08:00 97.7 70 18 110/60 97 Nasal Cannula 2.0 03/28/17 07:46 98 Nasal Cannula 4.0 36 03/28/17 07:46 Nasal Cannula 4.0 36 03/28/17 04:00 97.5 75 18 142/97 97 Nasal Cannula 2.0 03/28/17 00:52 78 18 99 Nasal Cannula 4.0 36 03/28/17 00:46 73 18 97 Nasal Cannula 3.0 32 03/27/17 23:30 97.7 77 18 126/70 97 Nasal Cannula 2.0 Intake and Output 03/27/17 03/28/17 19:00 07:00 Intake Total 225 ml 750 ml Output Total 300 ml 700 ml Balance -75 ml 50 ml Intake Oral 500 ml IV Total 225 ml 250 ml Output Urine Total 300 ml 700 ml # Voids 3 # Bowel Movements 1 Objective General Appearance: WD/WN HEENT: normocephalic Respiratory/Chest: chest wall non-tender, normal breath sounds Cardiovascular: normal peripheral pulses, normal rate Abdomen: normal bowel sounds, soft, non tender Genitourinary: normal external genitalia Extremities: no cyanosis Skin: no rash, no ulcers 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 Lymphatic: no neck adenopathy General Appearance: cachetic Laboratory Tests 03/28/17 04:55: White Blood Count 4.2L, Red Blood Count 3.77L, Hemoglobin 13.5L, Hematocrit 39.8L, Mean Corpuscular Volume 106H, Mean Corpuscular Hemoglobin 35.8H, Mean Corpuscular Hemoglobin Concent 33.9, Red Cell Distribution Width 13.0, Platelet Count 159, Mean Platelet Volume 7.9, Neutrophils (%) (Auto) 55.3, Lymphocytes (% ) (Auto) 25.9, Monocytes (%) (Auto) 15.1H, Eosinophils (%) (Auto) 1.8, Basophils (%) (Auto) 1.9, Sodium Level 137, Potassium Level 4.0, Chloride Level 101, Carbon Dioxide Level 24, Anion Gap 12, Blood Urea Nitrogen 7, Creatinine 0.6L, Estimat Glomerular Filtration Rate , Glucose Level 93, Calcium Level 8.3L Current Medications Medications (Trade) Dose Ordered Sig/Raoul Route PRN Reason Start Time Stop Time Status Last Admin Dose Admin Acetaminophen (Tylenol) 650 mg Q4H PRN ORAL fever 03/27/17 17:00 04/26/17 16:59 Al Hydroxide/Mg Hydroxide (Mylanta II) 30 ml Q6H PRN ORAL dyspepsia 03/27/17 17:00 04/26/17 16:59 Albuterol/ Ipratropium (DuoNeb 0.5-3(2.5)mg/3ml) 3 ml Q4H PRN HHN Shortness of Breath 03/27/17 18:15 04/01/17 18:14 Albuterol/ Ipratropium (DuoNeb 0.5-3(2.5)mg/3ml) 3 ml Q6HRT HHN 03/27/17 19:00 04/01/17 18:59 03/28/17 19:24 Ceftriaxone Sodium 1 gm/ Dextrose 50 ml @ 100 mls/hr Q24H IVPB 03/27/17 17:00 04/03/17 16:59 03/28/17 16:37 Chlordiazepoxide (Librium) 25 mg Q6H PRN ORAL Agitation 03/27/17 17:00 04/03/17 16:59 03/28/17 05:16 Clonidine HCl (Catapres) 0.1 mg Q4H PRN ORAL SBP > 160 03/27/17 17:00 04/26/17 16:59 Dextrose (Dextrose 50%) STAT PRN IV Hypoglycemia 03/27/17 17:00 04/26/17 16:59 Folic Acid 1 mg/ Magnesium Sulfate 2000 mg/ Multivitamins 10 ml/Sodium Chloride 1,014.2 ml @ 125 mls/ hr Q24H IV 03/28/17 15:00 04/27/17 14:59 03/28/17 15:19 Heparin Sodium (Porcine) (Heparin 5000 units/ml) 5,000 units EVERY 12 HOURS SUBQ 03/27/17 21:00 04/26/17 20:59 03/28/17 20:55 Lorazepam (Ativan 2mg/ml 1ml) 0.5 mg Q4H PRN IV For Anxiety 03/27/17 17:00 04/03/17 16:59 Metronidazole (Flagyl) 500 mg Q8HR ORAL 03/27/17 22:00 04/03/17 21:59 03/28/17 21:30 Morphine Sulfate (MS Contin) 15 mg DAILY ORAL 03/28/17 09:00 04/04/17 08:59 03/28/17 08:44 Morphine Sulfate (Morphine Sulfate) 1 mg Q4H PRN IVP For Pain 7-10 03/27/17 17:00 04/03/17 16:59 03/27/17 16:52 Nitroglycerin (Ntg) 0.4 mg Q5M X 3 DOSES PRN SL Prn Chest Pain 03/27/17 16:30 04/26/17 16:29 Ondansetron HCl (Zofran) 4 mg Q6H PRN IVP Nausea & Vomiting 03/27/17 17:00 04/26/17 16:59 Polyethylene Glycol (Miralax) 17 gm HSPRN PRN ORAL Constipation 03/27/17 17:00 04/26/17 16:59 Promethazine HCl/ Codeine (Phenergan with Codeine) 5 ml Q4H PRN ORAL For Cough 03/27/17 17:15 04/26/17 17:14 03/28/17 08:44 Quetiapine Fumarate (SEROquel) 200 mg DAILY ORAL 03/28/17 09:00 04/27/17 08:59 03/28/17 08:44 Temazepam (Restoril) 15 mg HSPRN PRN ORAL Insomnia 03/27/17 18:15 04/03/17 18:14 Thiamine HCl/ Dextrose (Vitamin B1/D5W) 56 ml @ 112 mls/hr Q24H IVPB 03/28/17 15:00 04/27/17 14:59 03/28/17 15:19 Trazodone HCl (Desyrel) 50 mg BEDTIME ORAL 03/27/17 21:00 04/26/17 20:59 03/28/17 20:54 YAJAIRA PRADO March 28, 2017 22:41
[2017-03-29] VITALS: BP 127/83
[2017-03-29] MEDS: DuoNeb 0.5-3(2.5)mg/3ml neb HHN SCH ×2 (00:52→07:56)
[2017-03-29 02:15] LABS: CD3 ABSOLUTE 997 /uL (622-2402); CD4 ABSOLUTE 534 /uL (359-1519); CD8 ABSOLUTE 456 /uL (109-897); LYMPHOCYTES ABSOLUTE 1.2 x10E3/uL (0.7-3.1); LYMPHS 28 % (.); WBC 4.3 x10E3/uL (3.4-10.8)
[2017-03-29 04:00] VITALS: BP 137/103
[2017-03-29] MEDS: metroNIDAZOLE 500mg tab ORAL SCH (05:10)
[2017-03-29 08:06] VITALS: BP 122/76
[2017-03-29] MEDS: QUEtiapine 200mg tab ORAL SCH (08:14)
[2017-03-29] MEDS: MS Contin 15mg tab ORAL SCH (08:14)
[2017-03-29] MEDS: Heparin 5000 units/ml inj SUBQ SCH (08:15)
[2017-03-29] MEDS ORDERED: Tubing IV Secondary IV ONE (10:29)
[2017-03-29] MEDS ORDERED: NS 275ml ONE (10:29)
--- NOTE | 2017-03-29 22:29 | Pulmonology Progress Note ---
Assessment/Plan Problems: (1) Acute encephalopathy (2) ATN (acute tubular necrosis) (3) COPD (chronic obstructive pulmonary disease) (4) Hypokalemia (5) HIV disease (6) Pulmonary hypertension Assessment/Plan feeling better, less short of breath check cultures pt/ot, pt refused all cultures negative CD4 pending dc planning med/surg Subjective Allergies: Coded Allergies: PENICILLIN G (Verified Allergy, Unknown, 03/24/17) PENICILLINS (Unverified Allergy, Unknown, 03/24/17) Objective Last 24 Hour Vital Signs Date Time Temp Pulse Resp B/P Pulse Ox O2 Delivery O2 Flow Rate FiO2 03/29/17 09:13 98.6 03/29/17 08:06 98.6 93 20 122/76 97 Nasal Cannula 3.0 03/29/17 07:59 Nasal Cannula 4.0 36 03/29/17 07:59 98 22 99 Nasal Cannula 4.0 03/29/17 07:46 91 24 97 Nasal Cannula 4.0 36 03/29/17 07:45 97 Nasal Cannula 4.0 36 03/29/17 04:00 97.7 77 21 137/103 100 Room Air 03/29/17 00:54 75 18 99 Nasal Cannula 4.0 03/29/17 00:54 71 18 98 Nasal Cannula 4.0 36 03/29/17 00:00 97.4 79 21 127/83 99 Room Air Intake and Output 03/28/17 03/29/17 19:00 07:00 Intake Total 725 ml 750 ml Output Total 500 ml 800 ml Balance 225 ml -50 ml Intake Oral 600 ml IV Total 125 ml 750 ml Output Urine Total 500 ml 800 ml # Voids 5 Objective General Appearance: WD/WN HEENT: normocephalic Respiratory/Chest: chest wall non-tender, normal breath sounds Cardiovascular: normal peripheral pulses, normal rate Abdomen: normal bowel sounds, soft, non tender Genitourinary: normal external genitalia Extremities: no cyanosis Skin: no rash, no ulcers 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 Resulted YAJAIRA PRADO March 29, 2017 22:29
--- NOTE | 2017-03-30 02:20 | Discharge Summary ---
DATE OF ADMISSION: 03/24/2017 DATE OF DISCHARGE: 03/29/2017 ADMITTING DIAGNOSES: 1. Acute renal failure. 2. Chronic kidney disease. 3. Syncopal episode. 4. Hypertension. 5. Chronic obstructive pulmonary disease exacerbation. 6. Hypokalemia. 7. Urinary tract infection. 8. Hypotension. 9. Tachycardia. COURSE OF HOSPITAL ADMISSION: The patient is a pleasant male with past medical history significant for chronic obstructive pulmonary disease, congestive heart failure, depression, degenerative joint disease, and avascular necrosis of the right hip, who was actually visiting his primary doctor, Dr. Bjorn Jones. He had episodes of fall. He was send to a 911 call. He was sent to emergency room. In the ER, the patient was found to be severely hypoxic. Consequently, the patient was admitted to the hospital for further evaluation. The patient was found to have a worsening of his kidney function from his baseline. The Lasix was stopped. The patient was started on breathing treatments and started on IV antibiotics. Physical therapy and occupational therapy was placed. The patient's condition significantly improved. He was able to walk and was pain free. Tessy Guthrie M.D. DR: MARIA JOB#: [id number] CC:
== END 2017-03-29 10:30 | disposition home or self-care (01) | DRG 682 ==
LOC: EDBD 14:59 → EMR 15:25 → EDBEDREQ 16:23 → 2W 17:00 → EDBEDREQ 18:18 → 2W 22:00 → 2E 03-25 19:05 → 4W 03-27 16:29
DX: N17.0 Acute kidney failure with tubular necrosis (principal); G93.40 Encephalopathy, unspecified; E87.2 Acidosis; B20 Human immunodeficiency virus [HIV] disease; J44.1 Chronic obstructive pulmonary disease with (acute) exacerbation; R55 Syncope and collapse; I27.2 Other secondary pulmonary hypertension; I95.2 Hypotension due to drugs; T40.605A Adverse effect of unspecified narcotics, initial encounter; Z87.891 Personal history of nicotine dependence; G89.4 Chronic pain syndrome; N18.9 Chronic kidney disease, unspecified; R09.02 Hypoxemia; I12.9 Hypertensive chronic kidney disease with stage 1 through stage 4 chronic kidney disease, or unspecified chronic kidney disease; R00.0 Tachycardia, unspecified; F32.9 Major depressive disorder, single episode, unspecified; E87.6 Hypokalemia; I27.81 Cor pulmonale (chronic); Z91.81 History of falling
CPT/HCPCS: 36415; 70450; 71010; 72125; 76700; 80048; 80053; 80329; 81001; 81003; 82248; 82436; 82533; 82550; 82553; 83605; 83735; 83880; 83930; 83935; 84100; 84133; 84300; 84439; 84443; 84481; 84484; 84550; 85025; 86360; 86705; 86709; 86803; 86850; 86900; 86901; 87040; 87070; 87086; 87205; 87340; 89050; 93005; 93306; 94640; 94760; J7620; J8499

== ENCOUNTER 2017-12-27 10:18 | Outpatient (CLI) | payer MEDICARE, MEDICAID ==
[~2017-12-27 10:18] MED LIST changes: +DALIRESP500 MCG PO; +ECONAZOLE NITRA30 GM TP; +FUROSEMIDE20 M1 ORAL; +GENVOYA TABLET1 EACH PO; +KADIAN60 MG PO; +MORPHINE IR15 MG ORAL; +PROMETHAZI6.25 MG/1 ORAL; +SEROQUEL200 MG ORAL; +SEROSTIM6 M1 SQ; +TRAZODONE HCL50 MG ORAL
--- NOTE | 2017-12-27 13:19 | Diagnostic Imaging Report ---
Indication:Abdominal pain Technique: Grayscale and duplex Doppler imaging of the abdomen performed. Comparison: None Findings: Multiple bilateral renal cysts of varying size demonstrated. The largest cyst is in the left kidney measuring about 3.5 cm. There is no hydronephrosis. Calcifications are demonstrated in the spleen which is normal in size. The liver shows slightly coarsened echotexture which is nonspecific. There is no biliary ductal dilatation. Gallbladder sludge noted. Main portal vein is patent by Doppler examination. CBD measurement is about 6 mm. There is no ascites. Pancreas is poorly seen. The aorta shows mural calcification and is diffusely ectatic. IMPRESSION: Bilateral renal cysts. Calcified splenic granulomata. Gallbladder sludge Moderate atherosclerotic disease of aorta
== END 2017-12-27 12:18 | disposition home or self-care (01) ==
LOC: ULS 10:18
DX: R10.11 Right upper quadrant pain (principal); N28.1 Cyst of kidney, acquired; I70.0 Atherosclerosis of aorta
CPT/HCPCS: 76700

== ENCOUNTER 2018-07-04 10:29 | Outpatient (CLI) | payer MEDICARE, MEDICAID ==
--- NOTE | 2018-07-04 12:25 | Diagnostic Imaging Report ---
Clinical Indication: Chest pain, shortness of breath, right middle lobe mass Technique: Spiral acquisitions obtained through the chest. No IV contrast utilized, per referring physician request. Multiplanar reconstructions generated. Total dose length product 557.43 mGycm. CTDIvol(s) 14.25 mGy. Dose reduction achieved using automated exposure control Comparison: 12/25/2015 Findings:The entire medial segment and perhaps all all of the right middle lobe appears to be occupied by a combination of soft tissue mass and atelectasis. This measures 8 cm AP by 7.7 cm transverse by approximately 6 cm craniocaudad. It extends to the medial mediastinal border and to the right hilum. It is slightly spiculated. There is occlusion of the right middle lobe bronchus just beyond its origin. Prior study demonstrated some streak-like opacities in the right middle lobe but no mass. The lungs are diffusely hyperinflated, and bullae are seen in the right lung apex and medial left lung. No infiltrates. No other masses or nodules are demonstrated. The main pulmonary artery is ectatic, measuring 3.5 cm in diameter. The left pulmonary artery is frankly dilated, measuring 3.1 cm. There is a granulomatous calcified node in the left pulmonary hilum. There is subcarinal lymphadenopathy, subcarinal node measuring 2.8 x 1.5 cm. There are prominent but not frankly enlarged mediastinal nodes. Included thyroid is unremarkable. No axillary or chest wall mass or adenopathy. Esophagus is unremarkable except for a tiny sliding type hiatal hernia. The bones demonstrate degenerative spondylosis changes. There is a compression fracture deformity of the L2 vertebral body with about 20% height loss. This was not evident on the previous study. Lipoma of the left lower chest wall and anterior upper abdominal wall is again noted The included upper abdomen demonstrates granulomatous calcifications within the spleen. There is a left upper pole renal cyst. It also described previously Impression: 8 x 7 x 7 x 6 cm medial right middle lobe mass, probably with some atelectasis, evidence of endobronchial occlusion at the level of the main right middle lobe bronchus. This is highly suspicious for neoplasm. Correlate with clinical history, consider bronchoscopy if not already diagnosed Subcarinal lymphadenopathy, quite possibly metastatic COPD changes, also previously described Dilated pulmonary arteries, also previously described, accounting basis of pulmonary arterial hypertension L2 vertebral body compression fracture, acuity indeterminate but new since the previous exam. Consider MRI if this is clinically relevant Other findings as noted, including left upper pole renal cyst, granulomas calcifications within the spleen and left pulmonary hilum, tiny sliding-type hiatal hernia, degenerative spondylosis, left lower chest and upper abdominal wall lipoma The CT scanner at [facility] is accredited by the [employer] and the scans are performed using protocols designed to limit radiation exposure to as low as reasonably achievable to attain images of sufficient resolution adequate for diagnostic evaluation.
== END 2018-07-04 12:29 | disposition home or self-care (01) ==
LOC: RAD 10:29
DX: R91.8 Other nonspecific abnormal finding of lung field (principal); R59.1 Generalized enlarged lymph nodes; J44.9 Chronic obstructive pulmonary disease, unspecified; N20.0 Calculus of kidney; S32.029A Unspecified fracture of second lumbar vertebra, initial encounter for closed fracture; X58.XXXA Exposure to other specified factors, initial encounter; Y93.9 Activity, unspecified; Y92.9 Unspecified place or not applicable; K44.9 Diaphragmatic hernia without obstruction or gangrene; D17.79 Benign lipomatous neoplasm of other sites; R07.9 Chest pain, unspecified; R06.02 Shortness of breath
CPT/HCPCS: 71250